=== PATIENT | female | born 1990 | race Hispanic/Latino ===

== ENCOUNTER 2016-07-22 12:42 | Outpatient (CLI) | payer OTHER ==
[~2016-07-22] VITALS: Ht 157.5 cm; Wt 66.2 kg
[2016-07-22 12:08] VITALS: BP 101/59
[~2016-07-22 12:42] MED LIST: ACYC200C PO; CLIN150C17 PO; FERR325C PO; IBUP-1773 PO; NITR-65 PO; PREN1TAB19 PO
[2016-07-22 13:04] VITALS: BP 108/64
[2016-07-22] MEDS ORDERED: FLU TRIvalent (5 YOA+) 2016-17 (AFLURIA) 0.5 ML IM ONE (14:15)
[2016-07-22] MEDS ORDERED: FERR325T5 PO (14:34)
[2016-07-22] MEDS ORDERED: PREN1TAB86 PO (14:34)
[2016-07-22 14:45] VITALS: BP 108/64
--- NOTE | 2016-07-22 15:12 | Diagnostic Imaging Report ---
INDICATION: well-being. TECHNIQUE: The biophysical profile was performed in the routine fashion. COMPARISON: There is no prior study for comparison. FINDINGS: The fetus scored 2 out of 2 in movement, posture and tone, and amniotic fluid index. The amniotic fluid index was 9.6 cm. The fetus is in cephalic presentation. The heart rate is 159 BPM. The fetus scored 0 out of 2 for breathing. IMPRESSION: The biophysical profile score is 6 out of 8 points. The fetus scored 0 out of 2 points for breathing. The amniotic fluid index is normal. Dictated by: Dictated on workstation # [id number]
--- NOTE | 2016-07-23 08:37 | Physician Query-Final Dx ---
BAM GUZMAN 07/23/16 0837: Clinic Account Progress/Dx Physician Query: Please give diagnosis Date of Service Jul 22, 2016 at 12:42 ANDREIA HERNÁNDEZ DO 07/24/16 0836: Clinic Account Progress/Dx DIAGNOSIS: Diagnosis 34 week IUP Decreased movement BAM GUZMAN Jul 23, 2016 08:37 ANDREIA HERNÁNDEZ DO Jul 24, 2016 08:36
== END 2016-07-22 14:45 | disposition home or self-care (01) ==
LOC: LDRP 12:42 → WSo 12:42
PROVIDERS: ATTEND Obstetrics & Gynecology
DX: O36.8130 Decreased fetal movements, third trimester, not applicable or unspecified (principal); Z3A.34 34 weeks gestation of pregnancy
CPT/HCPCS: 76819; 99214

== ENCOUNTER 2016-09-03 08:19 | Inpatient (IN) | payer OTHER ==
[2016-09-03] VITALS (19 sets, daily range): BP systolic 105–130; BP diastolic 55–78
[~2016-09-03] VITALS: Ht 160 cm; Wt 68.5 kg
[~2016-09-03 08:19] MED LIST changes: +FERR325T5 PO; +PREN1TAB86 PO
[2016-09-03] MEDS ORDERED: ACETAMINOPHEN 500 MG TAB (TYLENOL) PO ONE (09:15)
[2016-09-03] MEDS ORDERED: ACETAMINOPHEN 500 MG TAB (TYLENOL) ONE ×2 (09:16→17:07)
[2016-09-03 09:34] LABS: MEAN PLATELET VOLUME 9.9 FL (7.4-10.4); RED BLOOD COUNT 3.7 10^6/uL (4.35-5.85); RED CELL DISTRIBUTION WIDTH 15.7 % (10.0-14.5); WHITE BLOOD COUNT 7.9 10^3/uL (4.3-11.0)
[2016-09-03] MEDS ORDERED: D5 LR IV SOLUTION 1,000 ML IV ONE (10:05)
[2016-09-03] MEDS ORDERED: D5 LR IV SOLUTION 1,000 ML IV SCH ×2 (10:15→13:31)
--- NOTE | 2016-09-03 10:34 | Diagnostic Imaging Report ---
EXAMINATION: OB ultrasound. INDICATION: Decreased movement. FINDINGS: The heart rate is 174 BPM. The placenta is anterior. No placenta previa. The presentation is cephalic. The total amniotic fluid index is 17 cm. The biophysical profile criteria were met with an total score of 8 out of 8 points. IMPRESSION: The total biophysical profile score was 8 out of 8 points. Dictated by: Dictated on workstation # [id number]
[2016-09-03] MEDS ORDERED: MISOPROSTOL 100 MCG (CYTOTEC) TAB PO ONE (12:15)
[2016-09-03] MEDS ORDERED: TERBUTALINE INJ 1 MG/ML (BRETHINE) AMP SC PRN (13:45)
[2016-09-03] MEDS ORDERED: CATHETER FLUSH 10 ML SYR IV SCH ×2 (14:00→22:00)
[2016-09-03] MEDS ORDERED: MISOPROSTOL 100 MCG (CYTOTEC) TAB PO SCH (16:15)
[2016-09-03] MEDS ORDERED: SUFENTA 0.6MCG/ML BUPIVA 0.125 0 ML ONE (17:07)
[2016-09-03] MEDS ORDERED: LACTATED RINGERS 1,000 ML IV ONE (17:07)
[2016-09-03] MEDS ORDERED: OXYTOCIN/NORMAL SALINE 500 ML IV ONE (17:48)
[2016-09-03] MEDS: OXYTOCIN/NORMAL SALINE 500 ML IV SCH ×2 (17:50→18:24)
[2016-09-03] MEDS ORDERED: DIBUCAINE (NUPERCAINAL) 1% OINT 30 GM TOP PRN (18:00)
[2016-09-03] MEDS ORDERED: APAP 300 MG/CODEINE 30 MG (TYLENOL #3) TAB PO PRN (18:00)
[2016-09-03] MEDS ORDERED: MEASLES,MUMPS,RUBELLA 1 EA INJ SQ ONE (18:00)
[2016-09-03] MEDS ORDERED: BENZOCAINE/MENTHOL (DERMOPLAST) 56 ML CAN TP PRN (18:00)
[2016-09-03] MEDS ORDERED: WITCH HAZEL(TUCKS) 40 EA JAR TOP PRN (18:00)
[2016-09-03] MEDS ORDERED: guaiFENesin/DM (ROBITUSSIN DM) 10 ML UDC PO PRN (18:00)
[2016-09-03] MEDS ORDERED: TETANUS,DIPTH,PERTUSS P/F (BOOSTRIX) 0.5 ML VIAL IM ONE (18:00)
--- NOTE | 2016-09-03 18:07 | History & Physical-OB ---
OB - Chief Complaint & HPI Date Date of Admission: Date of Admission: Sep 03, 2016 at 12:15 Chief Complaint/History OB-Reason for Admission/Chief: Obstetrical Complication (Maternal temp, tachycardia, heart rate decelerations) Hx : 3 Hx Para: 2 Expected Date of Delivery: Sep 16, 2016 Gestational Age in Weeks: 38 Admission Nurse Assessment Rev: Yes History of Labs O pos Antibody neg RI RPR NR HBsAg NR HIV NR GC neg GBS neg Allergies and Home Medications Allergies Coded Allergies: No Known Drug Allergies (Verified , 09/19/08) Home Medications Ferrous Sulfate 325 Mg Tablet.dr 325 MG PO BID (Reported) Vit W-Ca,Fe,FA(<1 mg) 1 Each Tablet 1 EACH PO DAILY (Reported) OB - History Hx of Present Care: Yes Ultrasounds: Normal mid trimester US Obstetrical Complications: None Medical Complications: None Obstetrical History Hx Termination: No Hx Multiple Gestation: No Hx Stillbirth: No Hx Complication: No Hx Induced Hypertens: Yes Hx Maternal Gestational Diabet: No Delivery History Hx Dystocia: No Hx Large For Gestational Age I: No Hx Small for Gestational Age I: No Hx Section: No Hx Vaginal Delivery Post C-Sec: No Hx Blood Disorders: No Adverse Rxn to Tranfusion: No Patient Past Medical History n/a Social History/Family History Recent Infectious Disease Expo: No Alcohol Use: Denies Use Recreational Drug Use: No Immunizations Hepatitis A: No Hepatitis B: No Tetanus Booster (TDap): More than 5yrs OB - Admission Exam Physical Exam Vitals: Vital Signs 09/03/16 16:00 Temp 100.1 Pulse 95 Resp 20 B/P 105/55 O2 Delivery Non Rebreather O2 Flow Rate 10.00 HEENT: NCAT Heart: Rhythm Normal Lungs: Clear, Wheezes (expiratory wheezes) Abdomen: Gravid Extremities: Normal Reflexes: Normal Cervical Dilatation: 4cm Effacement: 50% Station: -2 Membranes: Intact Heart Rate: 130's Accelerations: Accelerations Present Decelerations: No Decelerations Short Term Variability: Present Wire Hanger Variability: Average (6-25) Contractions on Admission: 6-10 Minutes Apart Intensity: Mild Labs Laboratory Tests Test 09/03/16 09:20 Range/Units Hematocrit 28 L 35-52 % Hemoglobin 9.3 L 11.5-16.0 G/DL Mean Corpuscular Hemoglobin 25 25-34 PG Mean Corpuscular Hemoglobin Concent 33 32-36 G/DL Mean Corpuscular Volume 76 L 80-99 FL Mean Platelet Volume 9.9 7.4-10.4 FL Platelet Count 267 130-400 10^3/uL Red Blood Count 3.70 L 4.35-5.85 10^6/uL Red Cell Distribution Width 15.7 H 10.0-14.5 % White Blood Count 7.9 4.3-11.0 10^3/uL OB - Assessment/Plan/Diagnosis Assessment Assessment: other (Maternal temp, tachycardia, heart rate decelerations) Plan Plan: Other (Augmentation of labor) Induction Method: per Misoprostol Protocol Discharge Diagnosis Diagnosis: 26 yo @ 38.1 Maternal temp-likely URI viral vs. bacterial heart rate deceleration tachycardia GBS neg ANDREIA HERNÁNDEZ DO Sep 03, 2016 18:07
--- NOTE | 2016-09-03 18:11 | OB Labor & Delivery Record ---
L&D History Date of Service Date of Service: Sep 03, 2016 History Expected Date of Delivery: Sep 16, 2016 Gestational Age in Weeks: 38 Hx : 3 Hx Para: 2 Complications Events: Routine care Operative Indications (Cesarea: N/A-Vaginal Delivery Other Complications Maternal temp 101 F, persistent area of tachycardia L&D Stage1 Stage One Onset of Labor - Date: Sep 03, 2016 Monitors and Tracing Monitor Mode: Doppler Heart Rate: 155 Monitor Accelerations: Uniform Monitor Decelerations: Variable Station: -2 Nursing Home Variability: Average (6-10) Short Term Variability: Present Presentation: Vertex Vital Signs VS - Last 72 Hours, by Label 09/03/16 09/03/16 09/03/16 09/03/16 08:35 08:35 09:07 09:07 Temp 99.5 100.1 Pulse 121 121 121 121 Resp 20 20 20 20 B/P 119/69 119/69 115/66 115/66 O2 Delivery Room Air Room Air 09/03/16 09/03/16 09/03/16 09/03/16 10:00 10:00 11:30 13:05 Temp 100.4 100.4 98.6 99.0 Pulse 106 Resp 20 B/P 110/67 O2 Delivery Room Air 09/03/16 09/03/16 09/03/16 09/03/16 13:17 13:22 14:00 15:00 Temp 98.2 99.6 Pulse 105 Resp 20 B/P 114/66 O2 Delivery Non Rebreather Non Rebreather Non Rebreather O2 Flow Rate 10.00 10.00 10.00 09/03/16 16:00 Temp 100.1 Pulse 95 Resp 20 B/P 105/55 O2 Delivery Non Rebreather O2 Flow Rate 10.00 Rupture of Membranes Spontaneous Ruture of Membrane: No Amniotic Membrane Rupture Time: 17:00 Amniotic Membrane Fluid Desc.: Clear Vaginal Bleeding Description: Normal Show Progress/Notes Patient was given cytotec 100 mcg x 1 dose this am approx 0900, she progressed to 7cm with no analgesia and AROM'ed at 1700. Rapid progression to complete and +2 within 30 min of AROM L&D Stage2 Monitors and Tracing Monitor Mode: External Heart Rate: 155 Monitor Accelerations: None Monitor Decelerations: Variable Nursing Home Variability: Average (6-10) Short Term Variability: Present Position: Right Occiput Anterior Presentation: Vertex Cord Descript/Complications Cord Vessel Description: 3 Vessels Delivery Type Delivery Method: Spontaneous Vaginal Anterior Shoulder: Right Episiotomy/Perineal Laceration Laceraction(s)/Extensions: No Condition of Delivery 1 minute Comment: 9 5 minute Comment: 9 Notes Live male weight 6lbs 15 oz Condition of Infant Condition of Infant: Living Exam: No Observed Abnormalities Resuscitation Resuscitation: N/A - Spontaneous Resp L&D Stage3 Pictocin Pitocin Administration Comment: 30 mu wide open at delivery of placenta Placenta Delivery Placenta Delivery: Spontaneous Delivery Summary Summary blood loss >1000ml: No Vaginal blood loss >500ml: No 350 mL Attending at delivery: Andreia Hernández DO Condition of Delivery Examined: Cervix Examined, Uterus Explored Post Hemorrhage: No Condition of Mother stable Condition of (s) stable ANDREIA HERNÁNDEZ DO Sep 03, 2016 18:10
[2016-09-03] MEDS: IBUPROFEN 600 MG (MOTRIN) TAB PO SCH (19:39)
[2016-09-03] MEDS: AZITHROMYCIN 250 MG TAB (ZITHROMAX) PO SCH (19:39)
[2016-09-03] MEDS ORDERED: FLU TRIvalent (5 YOA+) 2016-17 (AFLURIA) 0.5 ML IM ONE (19:45)
[2016-09-03] MEDS: DOCUSATE SODIUM 100 MG (COLACE) CAP PO SCH (22:16)
[2016-09-03] MEDS: BENZONATATE 100 MG (TESSALON) CAPSULE PO SCH (22:16)
[2016-09-04 01:25] VITALS: BP 112/61
[2016-09-04] MEDS: IBUPROFEN 600 MG (MOTRIN) TAB PO SCH ×4 (01:26→18:31)
[2016-09-04 04:45] VITALS: BP 91/51
[2016-09-04 06:17] LABS: BASOPHILS % (AUTO) 0 % (0-10); EOSINOPHILS # (AUTO) 0.1 10^3/uL (0.0-0.3); EOSINOPHILS % (AUTO) 1 % (0-10); LYMPHOCYTES # (AUTO) 1.1 X 10^3 (1.0-4.0); LYMPHOCYTES % (AUTO) 12 % (12-44); MEAN CORPUSCULAR HEMOGLOBIN 25 PG (25-34); MEAN CORPUSCULAR HGB CONC 33 G/DL (32-36); MEAN CORPUSCULAR VOLUME 76 FL (80-99); MONOCYTES # (AUTO) 0.7 X 10^3 (0.0-1.0); MONOCYTES % (AUTO) 8 % (0-12); NEUTROPHILS # (AUTO) 7.7 X 10^3 (1.8-7.8); NEUTROPHILS % (AUTO) 80 % (42-75); PLATELET COUNT 264 10^3/uL (130-400); RED BLOOD COUNT 3.82 10^6/uL (4.35-5.85); RED CELL DISTRIBUTION WIDTH 15.9 % (10.0-14.5); WHITE BLOOD COUNT 9.6 10^3/uL (4.3-11.0)
--- NOTE | 2016-09-04 07:27 | Progress Note-Standard ---
Standard Progress Note Progress Notes/Assess & Plan Progress/Assessment & Plan Patient doing well PPD 1 NVD. Reports no concerns this morning. Cough is better, no fever/ chills overnight. Lochia light. Vital Sign - Last 24 Hours 09/03/16 09/03/16 09/03/16 09/03/16 08:35 08:35 09:07 09:07 Temp 99.5 100.1 Pulse 121 121 121 121 Resp 20 20 20 20 B/P 119/69 119/69 115/66 115/66 O2 Delivery Room Air Room Air 09/03/16 09/03/16 09/03/16 09/03/16 10:00 10:00 11:30 13:05 Temp 100.4 100.4 98.6 99.0 Pulse 106 Resp 20 B/P 110/67 O2 Delivery Room Air 09/03/16 09/03/16 09/03/16 09/03/16 13:17 13:22 14:00 15:00 Temp 98.2 99.6 Pulse 105 Resp 20 B/P 114/66 O2 Delivery Non Rebreather Non Rebreather Non Rebreather O2 Flow Rate 10.00 10.00 10.00 09/03/16 09/03/16 09/03/16 09/03/16 16:00 17:00 17:03 18:00 Temp 100.1 101.2 101.5 Pulse 95 113 107 Resp 20 20 20 B/P 105/55 130/78 123/61 O2 Delivery Non Rebreather Non Rebreather Room Air O2 Flow Rate 10.00 10.00 09/03/16 09/03/16 09/03/16 09/03/16 18:15 18:30 18:45 19:00 Pulse 103 92 92 80 Resp 20 20 20 20 B/P 123/61 120/61 111/60 111/63 O2 Delivery Room Air Room Air Room Air Room Air 09/03/16 09/03/16 09/03/16 09/03/16 19:15 19:30 19:45 20:00 Temp 99.5 Pulse 88 92 105 107 Resp 20 20 20 20 B/P 122/65 111/59 110/63 111/63 O2 Delivery Room Air Room Air Room Air Room Air 2/15/17 2/15/17 2/15/17 2/15/17 20:15 20:30 21:00 21:15 Temp 99.8 Pulse 104 108 109 116 Resp 20 20 20 20 B/P 116/64 109/62 115/68 106/60 O2 Delivery Room Air Room Air Room Air Room Air 09/04/16 09/04/16 01:25 04:45 Temp 98.2 98.1 Pulse 76 91 Resp 18 18 B/P 112/61 91/51 Pulse Ox 99 97 O2 Delivery Room Air Room Air Laboratory Tests Test 09/03/16 09:20 09/04/16 06:03 Range/Units Hematocrit 28 L 29 L 35-52 % Hemoglobin 9.3 L 9.6 L 11.5-16.0 G/DL Mean Corpuscular Hemoglobin 25 25 25-34 PG Mean Corpuscular Hemoglobin Concent 33 33 32-36 G/DL Mean Corpuscular Volume 76 L 76 L 80-99 FL Mean Platelet Volume 9.9 10.0 7.4-10.4 FL Platelet Count 267 264 130-400 10^3/uL Red Blood Count 3.70 L 3.82 L 4.35-5.85 10^6/uL Red Cell Distribution Width 15.7 H 15.9 H 10.0-14.5 % White Blood Count 7.9 9.6 4.3-11.0 10^3/uL Basophils # (Auto) 0.0 0.0-0.1 10^3/uL Basophils (%) (Auto) 0 0-10 % Eosinophils # (Auto) 0.1 0.0-0.3 10^3/uL Eosinophils (%) (Auto) 1 0-10 % Lymphocytes # (Auto) 1.1 1.0-4.0 X 10^3 Lymphocytes (%) (Auto) 12 12-44 % Monocytes # (Auto) 0.7 0.0-1.0 X 10^3 Monocytes (%) (Auto) 8 0-12 % Neutrophils # (Auto) 7.7 1.8-7.8 X 10^3 Neutrophils (%) (Auto) 80 H 42-75 % Uterine fundus firm and below umbilicus Diagnosis: PPD1 NVD URI- improved this am P: Continue current plan of care, patient on azithro and cough suppressant. Encourage ambulation, Anticipate dc home tomorrow. ANDREIA HERNÁNDEZ DO Sep 04, 2016 7:27 am
[2016-09-04 08:00] VITALS: BP 93/53
[2016-09-04] MEDS: FERROUS SULF 325 MG (IRON) TAB PO SCH (10:52)
[2016-09-04] MEDS: DOCUSATE SODIUM 100 MG (COLACE) CAP PO SCH ×2 (10:52→21:26)
[2016-09-04] MEDS: PRENATAL VITAMIN 1 EA TAB PO SCH (10:52)
[2016-09-04 12:20] VITALS: BP 91/59
[2016-09-04] MEDS: AZITHROMYCIN 250 MG TAB (ZITHROMAX) PO SCH (12:35)
[2016-09-04 16:00] VITALS: BP 100/67
[2016-09-04 19:45] VITALS: BP 104/62
[2016-09-04] MEDS: BENZONATATE 100 MG (TESSALON) CAPSULE PO SCH (21:26)
[2016-09-05] MEDS: IBUPROFEN 600 MG (MOTRIN) TAB PO SCH ×2 (00:18→05:58)
[2016-09-05 02:17] VITALS: BP 106/63
--- NOTE | 2016-09-05 07:39 | Progress Note-Standard ---
Standard Progress Note Progress Notes/Assess & Plan Progress/Assessment & Plan Patient doing well PPD 2 NVD. Reports no concerns this morning. Cough is better, no fever/ chills overnight. Lochia light. Vital Sign - Last 24 Hours 09/04/16 09/04/16 09/04/16 09/04/16 08:00 12:20 16:00 19:45 Temp 97.8 97.6 97.5 98.1 Pulse 77 99 78 95 Resp 16 18 20 18 B/P 93/53 91/59 100/67 104/62 Pulse Ox 98 96 95 97 O2 Delivery Room Air Room Air Room Air Room Air 09/05/16 02:17 Temp 98.1 Pulse 77 Resp 18 B/P 106/63 Pulse Ox 98 O2 Delivery Room Air Uterine fundus firm and below umbilicus Diagnosis: PPD2 NVD P: Continue current plan of care, patient on azithro and cough suppressant. Encourage ambulation, Anticipate dc home today. ANDREIA HERNÁNDEZ DO Sep 05, 2016 7:39 am
[2016-09-05] MEDS ORDERED: ACET1TAB43 PO (07:41)
[2016-09-05] MEDS ORDERED: GUAI5SYR PO (07:41)
[2016-09-05] MEDS ORDERED: IBUP-1773 PO (07:41)
[2016-09-05] MEDS ORDERED: DOCU100C37 PO (07:41)
[2016-09-05] MEDS ORDERED: AZIT250T5 PO (07:41)
--- NOTE | 2016-09-05 07:41 | Discharge Inst-Women's Service ---
Discharge Inst-Women's Serv Depart Medication/Instructions New, Converted or Re-Newed RX: RX on Chart Consults/Follow Up Additional Follow Up: Yes Orders/Referrals Dr. Hernández in 6 weeks Activity Activity: Activity as Tolerated Driving Instructions: No Driving for 1 Week NO SMOKING: NO SMOKING Nothing Inside Vagina: No Douching, No [place], No Tampons Diet Discharge Diet: No Restrictions Symptoms to Report to : Bleeding Excessive, Pain Increased, Fever Over 101 Degrees F, Vaginal Bleeding Increase, Questions/Concerns For Any Problems or Questions: Contact Your Physician Skin/Wound Care Bathing Instructions: Shower (x 2 weeks) ANDREIA HERNÁNDEZ DO Sep 05, 2016 7:41 am
[2016-09-05] MEDS: DOCUSATE SODIUM 100 MG (COLACE) CAP PO SCH (09:38)
[2016-09-05] MEDS: PRENATAL VITAMIN 1 EA TAB PO SCH (09:38)
[2016-09-05] MEDS: AZITHROMYCIN 250 MG TAB (ZITHROMAX) PO SCH (09:38)
[2016-09-05] MEDS: BENZONATATE 100 MG (TESSALON) CAPSULE PO SCH (09:38)
[2016-09-05] MEDS: FERROUS SULF 325 MG (IRON) TAB PO SCH (09:38)
[2016-09-05 09:45] VITALS: BP 104/70
== END 2016-09-05 13:50 | disposition home or self-care (01) | DRG 775 ==
LOC: LDRP 08:19 → WSo 08:19 → LDRP 12:15
PROVIDERS: ADMIT Obstetrics & Gynecology; ATTEND Obstetrics & Gynecology
PROC: 10E0XZZ Delivery of Products of Conception, External Approach (ICD-10-PCS; principal; 2016-09-03)
PROC: 3E0DXGC Introduction of Other Therapeutic Substance into Mouth and Pharynx, External Approach (ICD-10-PCS; 2016-09-03)
DX: O99.52 Diseases of the respiratory system complicating childbirth (principal); J06.9 Acute upper respiratory infection, unspecified; O76 Abnormality in fetal heart rate and rhythm complicating labor and delivery; Z37.0 Single live birth; Z3A.38 38 weeks gestation of pregnancy
CPT/HCPCS: 36415; 76819; 85025; 85027; 86850; 86900; 86901; 87804; 88307; 99212

== ENCOUNTER 2018-04-11 13:16 | Observation (INO) | payer SELFPAY ==
[~2018-04-11] VITALS: Ht 152.4 cm; Wt 77.1 kg
[~2018-04-11 13:16] MED LIST changes: +ACET1TAB43 PO; +AZIT250T12 PO; +DOCU100C37 PO; +GUAI5SYR PO
--- NOTE | 2018-04-11 13:35 | ED Chest Pain ---
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 The patient notes that when she coughs she also has left groin pain. She's had no associated headache, stiff neck, or photophobia. She denies nausea vomiting or diarrhea. She denies dysuria. She denies a productive cough. Allergies and Home Medications Allergies Coded Allergies: No Known Drug Allergies (Verified , 09/19/08) Home Medications No Active Prescriptions or Reported Meds Patient Home Medication List Home Medication List Reviewed: Yes Review of Systems Review of Systems Constitutional: malaise EENTM: No Blurred Vision Respiratory: See HPI, Cough Cardiovascular: See HPI, Chest Pain Gastrointestinal: Denies Abdominal Pain, Denies Diarrhea, Denies Vomiting Genitourinary: No Symptoms Reported Musculoskeletal: back pain Skin: No change in color Psychiatric/Neurological: No Symptoms Reported Endocrine: No Symptoms Reported Hematologic/Lymphatic: No Symptoms Reported Past Wrpdkgo-[id number]-Iyldri Hx Past Med/Social Hx: Reviewed Nursing Past Med/Soc Hx Patient Social History Recent Foreign Travel: No Contact w/Someone Who Travel: No Recent Hopitalizations: No Immunizations Up To Date Tetanus Booster (TDap): More than 5yrs PED Vaccines UTD: Yes Seasonal Allergies Seasonal Allergies: No Past Medical History Surgeries: No Respiratory: No Cardiac: No Neurological: No Reproductive Disorders: No Female Reproductive Disorders: Denies Genitourinary: No UTI-Chronic Gastrointestinal: Yes (Gastritis ) Musculoskeletal: No Endocrine: No HEENT: No Cancer: No Psychosocial: No Integumentary: No Blood Disorders: No Adverse Reaction/Blood Tranf: No Family Medical History Cardiovascular disease 19 MOTHER Diabetes mellitus 19 FATHER FH: cancer (GRANDFATHER) FH: hyperlipidemia (MOTHER) Hypertension 19 FATHER Thyroid disease 19 MOTHER No Family History of: AIDS Abdominal aortic aneurysm [place] disease Alcoholism Alzheimer's disease Aphasia Arthritis Asthma Cancer of mouth Cataracts Colon cancer Completed stroke Congenital disease Congenital heart disease Coronary thrombosis Cystic fibrosis Deafness or hearing loss Dementia Drug abuse Dysphasia Fibrocystic disease of breast Gastroenteritis Glaucoma Headache disorder Hypercholesterolemia Infertility Kidney disease Myocardial infarction Neoplasm Not obtainable due to adoption Osteoporosis Parkinson's disease Prostate cancer Psychosocial problem Respiratory disorder Seizure disorder Severe allergy Tuberculosis Visual disorder No Pertinent Family Hx Physical Exam Vital Signs Vital Signs - First Documented 04/11/18 04/11/18 13:22 13:50 Temp 98.7 Pulse 132 Resp 18 B/P (MAP) 119/78 (92) Pulse Ox 95 O2 Delivery Room Air O2 Flow Rate 2.00 Capillary Refill : Height, Weight, BMI Height: 5'3.00" Weight: 151lbs. 0.0oz. [id number]; 26.8 BMI Method:Stated General Appearance: WD/WN, Mild Distress HEENT: Normal ENT Inspection Neck: Normal Inspection Respiratory: Decreased Breath Sounds Cardiovascular: Regular Rate, Rhythm, Tachycardia Gastrointestinal: Normal Bowel Sounds Extremity: Normal Inspection, Normal Range of Motion Neurologic/Psychiatric: Oriented x3, No Motor/Sensory Deficits, Normal Mood/ Affect Skin: Normal Color, Warm/Dry Focused Exam Lactate Level 04/11/18 13:20: Lactic Acid Level 1.01 Lactic Acid Level Laboratory Tests Test 04/11/18 13:20 Lactic Acid Level 1.01 MMOL/L (0.50-2.00) Progress/Results/Core Measures Results/Orders Lab Results Laboratory Tests Test 04/11/18 13:20 04/11/18 14:14 04/11/18 14:26 Range/Units White Blood Count 13.8 H 4.3-11.0 10^3/uL Red Blood Count 5.03 4.35-5.85 10^6/uL Hemoglobin 13.0 11.5-16.0 G/DL Hematocrit 39 35-52 % Mean Corpuscular Volume 78 L 80-99 FL Mean Corpuscular Hemoglobin 26 25-34 PG Mean Corpuscular Hemoglobin Concent 33 32-36 G/DL Red Cell Distribution Width 15.8 H 10.0-14.5 % Platelet Count 353 130-400 10^3/uL Mean Platelet Volume 9.9 7.4-10.4 FL Neutrophils (%) (Auto) 75 42-75 % Lymphocytes (%) (Auto) 12 12-44 % Monocytes (%) (Auto) 6 0-12 % Eosinophils (%) (Auto) 7 0-10 % Basophils (%) (Auto) 0 0-10 % Neutrophils # (Auto) 10.3 H 1.8-7.8 X 10^3 Lymphocytes # (Auto) 1.7 1.0-4.0 X 10^3 Monocytes # (Auto) 0.9 0.0-1.0 X 10^3 Eosinophils # (Auto) 0.9 H 0.0-0.3 10^3/uL Basophils # (Auto) 0.1 0.0-0.1 10^3/uL D-Dimer 0.80 H 0.00-0.49 UG/ML Lactic Acid Level 1.01 0.50-2.00 MMOL/L Troponin I < 0.30 <0.30 NG/ML Urine Color YELLOW Urine Clarity CLEAR Urine pH 5 5-9 Urine Specific [place] 1.020 1.016-1.022 Urine Protein NEGATIVE NEGATIVE Urine Glucose (UA) NEGATIVE NEGATIVE Urine Ketones 1+ H NEGATIVE Urine Nitrite NEGATIVE NEGATIVE Urine Bilirubin NEGATIVE NEGATIVE Urine Urobilinogen NORMAL NORMAL MG/DL Urine Leukocyte Esterase 2+ H NEGATIVE Urine RBC (Auto) 2+ H NEGATIVE Urine RBC NONE /HPF Urine WBC 2-5 /HPF Urine Squamous Epithelial Cells 0-2 /HPF Urine Crystals PRESENT H /LPF Urine Amorphous Sediment MOD ARABELLA URATES H /LPF Urine Bacteria MODERATE H /HPF Urine Casts NONE /LPF Urine Mucus LARGE H /LPF Urine Culture Indicated NO Blood Gas Puncture Site RT RAD Blood Gas Patient Temperature 100.6 Arterial Blood pH 7.40 7.37-7.43 Arterial Blood Partial Pressure CO2 35 35-45 MMHG Arterial Blood Partial Pressure O2 72 L 79-93 MMHG Arterial Blood HCO3 21 L 23-27 MMOL/L Arterial Blood Total CO2 21.7 21.0-31.0 MMOL/L Arterial Blood Oxygen Saturation 93 L 94-100 % Arterial Blood Base Excess -3.1 L -2.5-2.5 MMOL/L Ross Test YES-POS Blood Gas Ventilator Setting NO Blood Gas Inspired Oxygen ROOM AIR My Orders Orders - MARKIE HUNT MD Cbc With Automated Diff (04/11/18 13:28) Fibrin Degradation Products (04/11/18 13:28) Ua Culture If Indicated (04/11/18 13:28) Ekg Tracing (04/11/18 13:28) Troponin I (04/11/18 13:28) Blood Culture (04/11/18 13:35) Lactic Acid Analyzer (04/11/18 13:35) Albuterol/Ipra Inhalation Soln (Duoneb I (04/11/18 13:45) Svn Small Volume Nebulizer (04/11/18 13:35) Arterial Blood Gas (04/11/18 13:58) Ct Angio Chest W (04/11/18 15:15) Ns Iv 1000 Ml (Sodium Chloride 0.9%) (04/11/18 16:00) Ceftriaxone For Iv Use (Rocephin For I (04/11/18 16:15) Medications Given in ED Current Medications Medications Dose Ordered Sig/Johnny Route Start Time Stop Time Status Last Admin Dose Admin Albuterol/ Ipratropium 3 ml ONCE ONCE INH 04/11/18 13:45 04/11/18 13:46 DC 04/11/18 13:50 3 ML Iohexol 150 ml ONCE ONCE IV 04/11/18 15:30 04/11/18 15:35 DC 04/11/18 15:43 140 ML Sodium Chloride 250 ml ONCE ONCE IV 04/11/18 15:30 04/11/18 15:35 DC 04/11/18 15:43 80 ML Vital Signs/I&O 04/11/18 04/11/18 04/11/18 04/11/18 13:22 13:50 13:51 15:13 Temp 98.7 Pulse 132 123 Resp 18 18 B/P (MAP) 119/78 (92) 107/75 (86) Pulse Ox 95 93 98 O2 Delivery Room Air Nasal Cannula Nasal Cannula O2 Flow Rate 2.00 2.00 04/11/18 16:08 Pulse 118 Resp 18 B/P (MAP) 117/74 (88) Pulse Ox 100 O2 Delivery Nasal Cannula O2 Flow Rate 2.00 Progress Progress Note : Time: 16:21 Progress Note Patient had an elevated white count. Chest x-ray failed to demonstrate evidence of acute infiltrate. Patient's d-dimer was elevated. Blood cultures were obtained. Fortunately the patient's CTA fell demonstrate evidence of pulmonary embolus. Patient was given a liter of normal saline bolus. 2 g Rocephin IV were ordered I discussed findings with patient and family. We will initiate oral antibiotics. I will askl her to obtain a close follow-up with her caregiver of choice tomorrow. I invited her to return to the emergency department should any further problems or questions. Departure Impression Primary Impression: Acute URI Disposition: 01 HOME, SELF-CARE Condition: Improved Departure-Patient Inst. Decision time for Depature: 16:24 Referrals: [facility],LOCAL PHYSICIAN (PCP) Primary Care Physician Patient Instructions: Bacterial Upper Respiratory Infection, Adult (DC) Add. Discharge Instructions: Zithromax as prescribed. Close follow-up with [facility] tomorrow. Return if any problems. Scripts No Active Prescriptions or Reported Meds MARKIE HUNT MD Apr 11, 2018 13:35
[2018-04-11] MEDS ORDERED: RT-ALBUTEROL/IPRATROPIUM 3 ML (DUONEB) VIAL INH ONE (13:45)
[2018-04-11 14:13] LABS: BASOPHILS # (AUTO) 0.1 10^3/uL (0.0-0.1); BASOPHILS % (AUTO) 0 % (0-10); EOSINOPHILS # (AUTO) 0.9 10^3/uL (0.0-0.3); EOSINOPHILS % (AUTO) 7 % (0-10); HEMATOCRIT 39 % (35-52); LYMPHOCYTES # (AUTO) 1.7 X 10^3 (1.0-4.0); LYMPHOCYTES % (AUTO) 12 % (12-44); MEAN CORPUSCULAR HEMOGLOBIN 26 PG (25-34); MEAN CORPUSCULAR HGB CONC 33 G/DL (32-36); MEAN CORPUSCULAR VOLUME 78 FL (80-99); MEAN PLATELET VOLUME 9.9 FL (7.4-10.4); MONOCYTES # (AUTO) 0.9 X 10^3 (0.0-1.0); MONOCYTES % (AUTO) 6 % (0-12); NEUTROPHILS # (AUTO) 10.3 X 10^3 (1.8-7.8); NEUTROPHILS % (AUTO) 75 % (42-75); PLATELET COUNT 353 10^3/uL (130-400); RED BLOOD COUNT 5.03 10^6/uL (4.35-5.85); RED CELL DISTRIBUTION WIDTH 15.8 % (10.0-14.5); WHITE BLOOD COUNT 13.8 10^3/uL (4.3-11.0)
[2018-04-11 14:23] LABS: BILIRUBIN,URINE NEGATIVE (NEGATIVE); CLARITY,URINE CLEAR; COLOR,URINE YELLOW; GLUCOSE, URINE (UA) NEGATIVE (NEGATIVE); KETONES,URINE 1+ (NEGATIVE); LEUKOCYTE ESTERASE ,URINE 2+ (NEGATIVE); NITRITE,URINE NEGATIVE (NEGATIVE); PH,URINE 5 (5-9); PROTEIN,URINE NEGATIVE (NEGATIVE); UROBILINOGEN,URINE NORMAL (NORMAL)
[2018-04-11 14:26] LABS: AMORPHOUS SEDIMENT,UR MOD AMOR URATES /LPF; BACTERIA,URINE MODERATE /HPF; SQUAMOUS EPITHELIAL CELL,UR 0-2 /HPF
[2018-04-11 14:29] LABS: ABG BASE EXCESS -3.1 MMOL/L (-2.5-2.5); ABG OXYGEN SATURATION 93 % (94-100); ABG PCO2 35 MMHG (35-45); ABG PO2 72 MMHG (79-93); ABG TCO2 21.7 MMOL/L (21.0-31.0)
[2018-04-11 14:32] LABS: ALLENS TEST YES-POS; INSPIRED O2 ROOM AIR; PATIENT TEMP 100.6; VENTILATOR NO
--- NOTE | 2018-04-11 14:44 | Diagnostic Imaging Report ---
PATIENT HISTORY: Cough. TECHNIQUE: Two views of the chest. COMPARISON: 08/17/2013. FINDINGS: The lung volumes are normal. No focal consolidation is seen. No large pleural effusion or pneumothorax is seen. The cardiomediastinal silhouette is normal in size and contour. No acute osseous abnormality is seen. IMPRESSION: No acute pulmonary abnormality seen. Dictated by: Dictated on workstation # [id number]
[2018-04-11 15:13] VITALS: BP 107/75
--- OUTSIDE RECORDS SUMMARY | 2018-04-11 15:17 | XMS REPORT | Continuity of Care Document ---
Author Author [facility] Organization [facility] Address Unknown Phone Unavailable Allergies Active Description Code Type Severity Reaction Onset Reported/Identified Relationship to Patient Clinical Status Yes No Known Drug Allergies [id number] Drug Allergy Unknown N/A 09/19/2008 Medications There is no data. Problems Date Dx Coded Attending Type Code Diagnosis Diagnosed By 09/18/2013 SYD HORTON SKIN CARE SPECIALIST Ot 599.0 URIN TRACT INFECTION NOS 09/18/2013 SYD HORTON SKIN CARE SPECIALIST Ot 640.03 THREATEN ABORT-ANTEPART 09/18/2013 SYD HORTON SKIN CARE SPECIALIST Ot 646.63 INFECTION-ANTEPARTUM 09/18/2013 SYD HORTON SKIN CARE SPECIALIST Ot 789.05 ABDOMINAL PAIN, PERIUMBILIC 01/18/2014 JANETTE PEREZ MD Ot 644.03 THRT FRANCA LABOR-ANTEPART 04/20/2014 JANETTE PEREZ MD Ot 644.13 THREAT LABOR NEC-ANTEPAR 04/24/2014 JANETTE PEREZ MD Ot 644.13 THREAT LABOR NEC-ANTEPAR 04/28/2014 JANETTE PEREZ MD Ot 659.71 ABN DEL FET HT RT/RHYTHM,W OR W/O MENTIO 04/28/2014 JANETTE PEREZ MD Ot V27.0 DELIVER-SINGLE LIVEBORN 07/04/2014 JANETTE PEREZ MD Ot V28.81 07/04/2014 JANETTE PEREZ MD Ot V22.1 07/04/2014 JANETTE PEREZ MD Ot V28.81 07/17/2014 JANETTE PEREZ MD Ot V28.81 07/17/2014 JANETTE PEREZ MD Ot V22.1 11/21/2014 JANETTE PEREZ MD Ot V22.1 11/21/2014 JANETTE PEREZ MD Ot V22.1 12/21/2014 Ot 625.9 12/21/2014 Ot 285.9 12/21/2014 Ot 625.9 12/21/2014 Ot 780.4 12/21/2014 Ot 285.9 12/21/2014 Ot 625.9 12/21/2014 Ot 780.4 12/21/2014 JANETTE PEREZ MD Ot 704.00 12/21/2014 JANETTE PEREZ MD Ot 786.50 12/21/2014 JANETTE PEREZ MD Ot 789.09 12/21/2014 JANETTE PEREZ MD Ot 789.03 12/21/2014 JANETTE PEREZ MD Ot 789.04 12/21/2014 JANETTE PEREZ MD Ot 789.06 12/21/2014 JANETTE PEREZ MD Ot V28.81 12/21/2014 JANETTE PEREZ MD Ot V22.1 12/21/2014 Ot 625.9 03/05/2015 Ot 625.9 03/15/2015 Ot 625.9 11/26/2015 Ot 285.9 ANEMIA NOS 11/26/2015 Ot 625.9 FEM GENITAL SYMPTOMS NOS 11/26/2015 Ot 780.4 DIZZINESS AND GIDDINESS 11/26/2015 Ot 285.9 ANEMIA NOS 11/26/2015 Ot 625.9 FEM GENITAL SYMPTOMS NOS 11/26/2015 Ot 780.4 DIZZINESS AND GIDDINESS 11/26/2015 JANETTE PEREZ MD Ot 704.00 ALOPECIA NOS 11/26/2015 JANETTE PEREZ MD Ot 786.50 CHEST PAIN NOS 11/26/2015 JANETTE PEREZ MD Ot 789.09 ABDOMINAL PAIN, OTHER SPECIFIED SITE 11/26/2015 JANETTE PEREZ MD Ot 789.03 ABDOMINAL PAIN, RIGHT LOWER QUADRANT 11/26/2015 JANETTE PEREZ MD Ot 789.04 ABDOMINAL PAIN, LEFT LOWER QUADRANT 11/26/2015 JANETTE PEREZ MD Ot 789.06 ABDOMINAL PAIN, EPIGASTRIC 11/26/2015 JANETTE PEREZ MD Ot V28.81 ENCOUNTER FOR ANATOMIC SURVEY 11/26/2015 JANETTE PEREZ MD Ot V22.1 SUPERVIS OTH NORMAL PREG 11/26/2015 Ot 625.9 FEM GENITAL SYMPTOMS NOS 12/02/2015 JANETTE PEREZ MD Ot N93.9 ABNORMAL UTERINE AND VAGINAL BLEEDING, U 12/02/2015 JANETTE PEREZ MD Ot R10.2 PELVIC AND PERINEAL PAIN 03/16/2016 Ot 285.9 ANEMIA NOS 03/16/2016 Ot 625.9 FEM GENITAL SYMPTOMS NOS 03/16/2016 Ot 780.4 DIZZINESS AND GIDDINESS 03/16/2016 Ot 285.9 ANEMIA NOS 03/16/2016 Ot 625.9 FEM GENITAL SYMPTOMS NOS 03/16/2016 Ot 780.4 DIZZINESS AND GIDDINESS 03/16/2016 JANETTE PEREZ MD Ot 704.00 ALOPECIA NOS 03/16/2016 JANETTE PEREZ MD Ot 786.50 CHEST PAIN NOS 03/16/2016 JANETTE PEREZ MD Ot 789.09 ABDOMINAL PAIN, OTHER SPECIFIED SITE 03/16/2016 JANETTE PEREZ MD Ot 789.03 ABDOMINAL PAIN, RIGHT LOWER QUADRANT 03/16/2016 JANETTE PEREZ MD Ot 789.04 ABDOMINAL PAIN, LEFT LOWER QUADRANT 03/16/2016 JANETTE PEREZ MD Ot 789.06 ABDOMINAL PAIN, EPIGASTRIC 03/16/2016 JANETTE PEREZ MD Ot V28.81 ENCOUNTER FOR ANATOMIC SURVEY 03/16/2016 JANETTE PEREZ MD Ot V22.1 SUPERVIS OTH NORMAL PREG 03/16/2016 Ot 625.9 FEM GENITAL SYMPTOMS NOS 03/16/2016 JANETTE PEREZ MD Ot N93.9 ABNORMAL UTERINE AND VAGINAL BLEEDING, U 03/16/2016 JANETTE PEREZ MD Ot R10.2 PELVIC AND PERINEAL PAIN 03/16/2016 YANG OLIVEIRA Ot B02.9 ZOSTER WITHOUT COMPLICATIONS 03/16/2016 YANG OLIVEIRA Ot N76.0 ACUTE VAGINITIS 03/16/2016 YANG OLIVEIRA Ot N93.9 ABNORMAL UTERINE AND VAGINAL BLEEDING, U 03/16/2016 YANG OLIVEIRA Ot O20.0 THREATENED 03/16/2016 YANG OLIVEIRA Ot Z3A.13 13 WEEKS GESTATION OF 03/16/2016 Ot 285.9 ANEMIA NOS 03/16/2016 Ot 625.9 FEM GENITAL SYMPTOMS NOS 03/16/2016 Ot 780.4 DIZZINESS AND GIDDINESS 03/16/2016 Ot 285.9 ANEMIA NOS 03/16/2016 Ot 625.9 FEM GENITAL SYMPTOMS NOS 03/16/2016 Ot 780.4 DIZZINESS AND GIDDINESS 03/16/2016 JANETTE PEREZ MD Ot 704.00 ALOPECIA NOS 03/16/2016 JANETTE PEREZ MD Ot 786.50 CHEST PAIN NOS 03/16/2016 JANETTE PEREZ MD Ot 789.09 ABDOMINAL PAIN, OTHER SPECIFIED SITE 03/16/2016 JANETTE PEREZ MD Ot 789.03 ABDOMINAL PAIN, RIGHT LOWER QUADRANT 03/16/2016 JANETTE PEREZ MD Ot 789.04 ABDOMINAL PAIN, LEFT LOWER QUADRANT 03/16/2016 JANETTE PEREZ MD Ot 789.06 ABDOMINAL PAIN, EPIGASTRIC 03/16/2016 JANETTE PEREZ MD Ot V28.81 ENCOUNTER FOR ANATOMIC SURVEY 03/16/2016 JANETTE PEREZ MD Ot V22.1 SUPERVIS OTH NORMAL PREG 03/16/2016 Ot 625.9 FEM GENITAL SYMPTOMS NOS 03/16/2016 JANETTE PEREZ MD Ot N93.9 ABNORMAL UTERINE AND VAGINAL BLEEDING, U 03/16/2016 JANETTE PEREZ MD Ot R10.2 PELVIC AND PERINEAL PAIN 03/22/2016 YANG OLIVEIRA Ot B02.9 ZOSTER WITHOUT COMPLICATIONS 03/22/2016 YANG OLIVEIRA Ot N76.0 ACUTE VAGINITIS 03/22/2016 YANG OLIVEIRA Ot N93.9 ABNORMAL UTERINE AND VAGINAL BLEEDING, U 03/22/2016 YANG OLIVEIRA Ot O20.0 THREATENED 03/22/2016 YANG OLIVEIRA Ot Z3A.13 13 WEEKS GESTATION OF 06/30/2016 Ot 285.9 ANEMIA NOS 06/30/2016 Ot 625.9 FEM GENITAL SYMPTOMS NOS 06/30/2016 Ot 780.4 DIZZINESS AND GIDDINESS 06/30/2016 Ot 285.9 ANEMIA NOS 06/30/2016 Ot 625.9 FEM GENITAL SYMPTOMS NOS 06/30/2016 Ot 780.4 DIZZINESS AND GIDDINESS 06/30/2016 JANETTE PEREZ MD Ot 704.00 ALOPECIA NOS 06/30/2016 JANETTE PEREZ MD Ot 786.50 CHEST PAIN NOS 06/30/2016 JANETTE PEREZ MD Ot 789.09 ABDOMINAL PAIN, OTHER SPECIFIED SITE 06/30/2016 JANETTE PEREZ MD Ot 789.03 ABDOMINAL PAIN, RIGHT LOWER QUADRANT 06/30/2016 JANETTE PEREZ MD Ot 789.04 ABDOMINAL PAIN, LEFT LOWER QUADRANT 06/30/2016 JANETTE PEREZ MD Ot 789.06 ABDOMINAL PAIN, EPIGASTRIC 06/30/2016 JANETTE PEREZ MD Ot V28.81 ENCOUNTER FOR ANATOMIC SURVEY 06/30/2016 JANETTE PEREZ MD Ot V22.1 SUPERVIS OTH NORMAL PREG 06/30/2016 Ot 625.9 FEM GENITAL SYMPTOMS NOS 06/30/2016 JANETTE PEREZ MD Ot N93.9 ABNORMAL UTERINE AND VAGINAL BLEEDING, U 06/30/2016 JANETTE PEREZ MD Ot R10.2 PELVIC AND PERINEAL PAIN 06/30/2016 JANETTE PEREZ MD Ot N93.9 ABNORMAL UTERINE AND VAGINAL BLEEDING, U 06/30/2016 JANETTE PEREZ MD Ot R10.2 PELVIC AND PERINEAL PAIN 07/01/2016 YANG OLIVEIRA Ot B02.9 ZOSTER WITHOUT COMPLICATIONS 07/01/2016 MAUREEN BABCOCK YANG Nestor Ot N76.0 ACUTE VAGINITIS 07/01/2016 DEMI OLIVEIRAEN Nestor Ot N93.9 ABNORMAL UTERINE AND VAGINAL BLEEDING, U 07/01/2016 DEMI OLIVEIRAEN Nestor Ot O20.0 THREATENED 07/01/2016 YANG OLIVEIRA Ot Z3A.13 13 WEEKS GESTATION OF 07/18/2016 JANETTE PEREZ MD Ot N93.9 ABNORMAL UTERINE AND VAGINAL BLEEDING, U 07/18/2016 JANETTE PEREZ MD Ot R10.2 PELVIC AND PERINEAL PAIN 07/19/2016 JANETTE PEREZ MD Ot N93.9 ABNORMAL UTERINE AND VAGINAL BLEEDING, U 07/19/2016 JANETTE PEREZ MD Ot R10.2 PELVIC AND PERINEAL PAIN 07/22/2016 Ot 285.9 ANEMIA NOS 07/22/2016 Ot 625.9 FEM GENITAL SYMPTOMS NOS 07/22/2016 Ot 780.4 DIZZINESS AND GIDDINESS 07/22/2016 Ot 285.9 ANEMIA NOS 07/22/2016 Ot 625.9 FEM GENITAL SYMPTOMS NOS 07/22/2016 Ot 780.4 DIZZINESS AND GIDDINESS 07/22/2016 JANETTE PEREZ MD Ot 704.00 ALOPECIA NOS 07/22/2016 JANETTE PEREZ MD Ot 786.50 CHEST PAIN NOS 07/22/2016 JANETTE PEREZ MD Ot 789.09 ABDOMINAL PAIN, OTHER SPECIFIED SITE 07/22/2016 JANETTE PEREZ MD Ot 789.03 ABDOMINAL PAIN, RIGHT LOWER QUADRANT 07/22/2016 JANETTE PEREZ MD Ot 789.04 ABDOMINAL PAIN, LEFT LOWER QUADRANT 07/22/2016 JANETTE PEREZ MD Ot 789.06 ABDOMINAL PAIN, EPIGASTRIC 07/22/2016 JANETTE PEREZ MD Ot V28.81 ENCOUNTER FOR ANATOMIC SURVEY 07/22/2016 JANETTE PEREZ MD Ot V22.1 SUPERVIS OTH NORMAL PREG 07/22/2016 Ot 625.9 FEM GENITAL SYMPTOMS NOS 07/22/2016 CHRIS MARI, JANETTE Johnson Ot N93.9 ABNORMAL UTERINE AND VAGINAL BLEEDING, U 07/22/2016 JANETTE PEREZ MD Ot R10.2 PELVIC AND PERINEAL PAIN 07/22/2016 FENECH DO, ANDREIA S Ot O36.8130 DECREASED MOVEMENTS, THIRD TRIMEST 07/22/2016 FENECH DO, ANDREIA S Ot Z3A.34 34 WEEKS GESTATION OF 07/25/2016 FENECH DO, ANDREIA S Ot O36.8130 DECREASED MOVEMENTS, THIRD TRIMEST 07/25/2016 FENECH DO, ANDREIA S Ot Z3A.34 34 WEEKS GESTATION OF 07/25/2016 FENECH DO, ANDREIA S Ot O36.8130 DECREASED MOVEMENTS, THIRD TRIMEST 07/25/2016 FENECH DO, ANDREIA S Ot Z3A.34 34 WEEKS GESTATION OF 09/03/2016 Ot 285.9 ANEMIA NOS 09/03/2016 Ot 625.9 FEM GENITAL SYMPTOMS NOS 09/03/2016 Ot 780.4 DIZZINESS AND GIDDINESS 09/03/2016 Ot 285.9 ANEMIA NOS 09/03/2016 Ot 625.9 FEM GENITAL SYMPTOMS NOS 09/03/2016 Ot 780.4 DIZZINESS AND GIDDINESS 09/03/2016 CHRIS MARI, JANETTE Johnson Ot 704.00 ALOPECIA NOS 09/03/2016 CHRIS MARI, JANETTE Johnson Ot 786.50 CHEST PAIN NOS 09/03/2016 CHRIS MARI, JANETTE Johnson Ot 789.09 ABDOMINAL PAIN, OTHER SPECIFIED SITE 09/03/2016 JANETTE PEREZ MD Ot 789.03 ABDOMINAL PAIN, RIGHT LOWER QUADRANT 09/03/2016 JANETTE PEREZ MD Ot 789.04 ABDOMINAL PAIN, LEFT LOWER QUADRANT 09/03/2016 JANETTE PEREZ MD Ot 789.06 ABDOMINAL PAIN, EPIGASTRIC 09/03/2016 JANETTE PEREZ MD Ot V28.81 ENCOUNTER FOR ANATOMIC SURVEY 09/03/2016 JANETTE PEREZ MD Ot V22.1 SUPERVIS OTH NORMAL PREG 09/03/2016 Ot 625.9 FEM GENITAL SYMPTOMS NOS 09/03/2016 JANETTE PEREZ MD Ot N93.9 ABNORMAL UTERINE AND VAGINAL BLEEDING, U 09/03/2016 JANETTE PEREZ MD Ot R10.2 PELVIC AND PERINEAL PAIN 09/03/2016 JANETTE PEREZ MD Ot N93.9 ABNORMAL UTERINE AND VAGINAL BLEEDING, U 09/03/2016 JANETTE PEREZ MD Ot R10.2 PELVIC AND PERINEAL PAIN 09/04/2016 JANETTE PEREZ MD Ot N93.9 ABNORMAL UTERINE AND VAGINAL BLEEDING, U 09/04/2016 JANETTE PEREZ MD Ot R10.2 PELVIC AND PERINEAL PAIN 09/04/2016 JANETTE PEREZ MD Ot N93.9 ABNORMAL UTERINE AND VAGINAL BLEEDING, U 09/04/2016 JANETTE PEREZ MD Ot R10.2 PELVIC AND PERINEAL PAIN 09/05/2016 ANDREIA HERNÁNDEZ DO Ot J06.9 ACUTE UPPER RESPIRATORY INFECTION, UNSPE 09/05/2016 ANDREIA HERNÁNDEZ DO S Ot O76 ABNLT IN HEART RATE AND RHYTHM COM 09/05/2016 ANDREAI HERNÁNDEZ DO Ot O99.52 DISEASES OF THE RESPIRATORY SYSTEM COMPL 09/05/2016 ANDREIA HERNÁNDEZ DO Ot Z37.0 SINGLE LIVE 09/05/2016 ANDREIA HERNÁNDEZ DO Ot Z3A.38 38 WEEKS GESTATION OF 04/11/2018 JANETTE PEREZ MD Ot 704.00 ALOPECIA NOS 04/11/2018 JANETTE PEREZ MD Ot 786.50 CHEST PAIN NOS 04/11/2018 JANETTE PEREZ MD Ot 789.09 ABDOMINAL PAIN, OTHER SPECIFIED SITE 04/11/2018 JANETTE PEREZ MD Ot 789.03 ABDOMINAL PAIN, RIGHT LOWER QUADRANT 04/11/2018 JANETTE PEREZ MD Ot 789.04 ABDOMINAL PAIN, LEFT LOWER QUADRANT 04/11/2018 JANETTE PEREZ MD Ot 789.06 ABDOMINAL PAIN, EPIGASTRIC 04/11/2018 JANETTE PEREZ MD Ot V28.81 ENCOUNTER FOR ANATOMIC SURVEY 04/11/2018 JANETTE PEREZ MD Ot V22.1 SUPERVIS OTH NORMAL PREG 04/11/2018 Ot 625.9 FEM GENITAL SYMPTOMS NOS 04/11/2018 JANETTE PEREZ MD Ot N93.9 ABNORMAL UTERINE AND VAGINAL BLEEDING, U 04/11/2018 JANETTE PEREZ MD Ot R10.2 PELVIC AND PERINEAL PAIN Procedures Code Description Performed By Performed On 73.6 EPISIOTOMY 04/27/2014 [id number] DELIVERY OF PRODUCTS OF CONCEPTION, EXTE 09/03/2016 [id number] INTRODUCE OTH THERAP SUBST IN MOUTH/PHAR 09/03/2016 Results Test Result Range Complete urinalysis with reflex to culture - 03/16/16 12:22 Urine color determination YELLOW NRG Urine clarity determination SLIGHTLY CLOUDY NRG Urine pH measurement by test strip 6 5-9 Specific gravity of urine by test strip 1.020 1.016- 1.022 Urine protein assay by test strip, semi-quantitative 1+ NEGATIVE Urine glucose detection by automated test strip NEGATIVE NEGATIVE Erythrocytes detection in urine sediment by light microscopy 2+ NEGATIVE Urine ketones detection by automated test strip 3+ NEGATIVE Urine nitrite detection by test strip NEGATIVE NEGATIVE Urine total bilirubin detection by test strip NEGATIVE NEGATIVE Urine urobilinogen measurement by automated test strip (mass/volume) NORMAL NORMAL Urine leukocyte esterase detection by dipstick 2+ NEGATIVE Automated urine sediment erythrocyte count by microscopy (number/high power field) [HPF] NRG Automated urine sediment leukocyte count by microscopy (number/high power field ) [HPF] NRG Bacteria detection in urine sediment by light microscopy NEGATIVE NRG Squamous epithelial cells detection in urine sediment by light microscopy >50 NRG Crystals detection in urine sediment by light microscopy NONE NRG Casts detection in urine sediment by light microscopy NONE NRG Mucus detection in urine sediment by light microscopy MODERATE NRG Complete urinalysis with reflex to culture NO NRG Complete blood count (CBC) with automated white blood cell (WBC) differential - 03/16/16 12:38 Blood leukocytes automated count (number/volume) 8.2 10*3/uL 4.3-11.0 Blood erythrocytes automated count (number/volume) 4.31 10*6/uL 4.35-5.85 Venous blood hemoglobin measurement (mass/volume) 11.8 g/dL 11.5-16.0 Blood hematocrit (volume fraction) 34 % 35-52 Automated erythrocyte mean corpuscular volume 79 [foz_us] 80-99 Automated erythrocyte mean corpuscular hemoglobin (mass per erythrocyte) 27 pg 25-34 Automated erythrocyte mean corpuscular hemoglobin concentration measurement ( mass/volume) 35 g/dL 32-36 Automated erythrocyte distribution width ratio 14.1 % 10.0-14.5 Automated blood platelet count (count/volume) 305 10*3/uL 130-400 Automated blood platelet mean volume measurement 9.3 [foz_us] 7.4-10.4 Automated blood neutrophils/100 leukocytes 66 % 42-75 Automated blood lymphocytes/100 leukocytes 25 % 12-44 Blood monocytes/100 leukocytes 6 % 0-12 Automated blood eosinophils/100 leukocytes 3 % 0-10 Automated blood basophils/100 leukocytes 1 % 0-10 Blood neutrophils automated count (number/volume) 5.4 10*3 1.8-7.8 Blood lymphocytes automated count (number/volume) 2.0 10*3 1.0-4.0 Blood monocytes automated count (number/volume) 0.5 10*3 0.0-1.0 Automated eosinophil count 0.3 10*3/uL 0.0-0.3 Automated blood basophil count (count/volume) 0.1 10*3/uL 0.0-0.1 Serum or plasma choriogonadotropin measurement (units/volume) - 03/16/16 12:38 Serum or plasma choriogonadotropin measurement (units/volume) 45380 m[iU]/mL <5 [id number] - 03/16/16 12:38 [id number] SPECIMEN AVAILABLE NRG Bacteria identification in genital specimen by aerobe culture - 03/16/16 14:16 QUANTITY OF GROWTH Isolated NRG Bacteria identification in genital specimen by aerobe culture [id number] NRG Microscopic examination by wet preparation - 03/16/16 14:16 WET PREP RESULTS NO CLUE CELLS OBSERVED NRG Neisseria gonorrhoeae DNA detection by probe and signal amplification method - 03/16/16 14:16 Gonorrhea amp DNA-urine Negative Negative Chlamydia trachomatis DNA detection by probe and signal amplification method - 03/16/16 14:16 Chlamydia trachomatis DNA detection by probe and target amplification method Negative Negative [id number] - 09/03/16 09:20 [id number] SPECIMEN AVAILABLE NRG Automated blood complete blood count (hemogram) panel - 09/03/16 09:20 Blood leukocytes automated count (number/volume) 7.9 10*3/uL 4.3-11.0 Blood erythrocytes automated count (number/volume) 3.70 10*6/uL 4.35-5.85 Venous blood hemoglobin measurement (mass/volume) 9.3 g/dL 11.5-16.0 Blood hematocrit (volume fraction) 28 % 35-52 Automated erythrocyte mean corpuscular volume 76 [foz_us] 80-99 Automated erythrocyte mean corpuscular hemoglobin (mass per erythrocyte) 25 pg 25-34 Automated erythrocyte mean corpuscular hemoglobin concentration measurement ( mass/volume) 33 g/dL 32-36 Automated erythrocyte distribution width ratio 15.7 % 10.0-14.5 Automated blood platelet count (count/volume) 267 10*3/uL 130-400 Automated blood platelet mean volume measurement 9.9 [foz_us] 7.4-10.4 Blood type T Indirect antibody screen panel - 09/03/16 09:20 ABO+Rh group OP NRG Transfusion band number [id number] [facility] Blood group antibody screen NEGATIVE NR Complete blood count (CBC) with automated white blood cell (WBC) differential - 09/04/16 06:03 Blood leukocytes automated count (number/volume) 9.6 10*3/uL 4.3-11.0 Blood erythrocytes automated count (number/volume) 3.82 10*6/uL 4.35-5.85 Venous blood hemoglobin measurement (mass/volume) 9.6 g/dL 11.5-16.0 Blood hematocrit (volume fraction) 29 % 35-52 Automated erythrocyte mean corpuscular volume 76 [foz_us] 80-99 Automated erythrocyte mean corpuscular hemoglobin (mass per erythrocyte) 25 pg 25-34 Automated erythrocyte mean corpuscular hemoglobin concentration measurement ( mass/volume) 33 g/dL 32-36 Automated erythrocyte distribution width ratio 15.9 % 10.0-14.5 Automated blood platelet count (count/volume) 264 10*3/uL 130-400 Automated blood platelet mean volume measurement 10.0 [foz_us] 7.4-10.4 Automated blood neutrophils/100 leukocytes 80 % 42-75 Automated blood lymphocytes/100 leukocytes 12 % 12-44 Blood monocytes/100 leukocytes 8 % 0-12 Automated blood eosinophils/100 leukocytes 1 % 0-10 Automated blood basophils/100 leukocytes 0 % 0-10 Blood neutrophils automated count (number/volume) 7.7 10*3 1.8-7.8 Blood lymphocytes automated count (number/volume) 1.1 10*3 1.0-4.0 Blood monocytes automated count (number/volume) 0.7 10*3 0.0-1.0 Automated eosinophil count 0.1 10*3/uL 0.0-0.3 Automated blood basophil count (count/volume) 0.0 10*3/uL 0.0-0.1 Influenza virus A and B antigen detection - 09/04/16 10:00 FLU RESULT NEGATIVE FOR INFLUENZA A AND B ANTIGENS BY IA [facility] Complete blood count (CBC) with automated white blood cell (WBC) differential - 04/11/18 13:20 Blood leukocytes automated count (number/volume) 13.8 10*3/uL 4.3-11.0 Blood erythrocytes automated count (number/volume) 5.03 10*6/uL 4.35-5.85 Venous blood hemoglobin measurement (mass/volume) 13.0 g/dL 11.5-16.0 Blood hematocrit (volume fraction) 39 % 35-52 Automated erythrocyte mean corpuscular volume 78 [foz_us] 80-99 Automated erythrocyte mean corpuscular hemoglobin (mass per erythrocyte) 26 pg 25-34 Automated erythrocyte mean corpuscular hemoglobin concentration measurement ( mass/volume) 33 g/dL 32-36 Automated erythrocyte distribution width ratio 15.8 % 10.0-14.5 Automated blood platelet count (count/volume) 353 10*3/uL 130-400 Automated blood platelet mean volume measurement 9.9 [foz_us] 7.4-10.4 Automated blood neutrophils/100 leukocytes 75 % 42-75 Automated blood lymphocytes/100 leukocytes 12 % 12-44 Blood monocytes/100 leukocytes 6 % 0-12 Automated blood eosinophils/100 leukocytes 7 % 0-10 Automated blood basophils/100 leukocytes 0 % 0-10 Blood neutrophils automated count (number/volume) 10.3 10*3 1.8-7.8 Blood lymphocytes automated count (number/volume) 1.7 10*3 1.0-4.0 Blood monocytes automated count (number/volume) 0.9 10*3 0.0-1.0 Automated eosinophil count 0.9 10*3/uL 0.0-0.3 Automated blood basophil count (count/volume) 0.1 10*3/uL 0.0-0.1 Encounters ACCT No. Visit Date/Time Discharge Status Pt. Type Provider Facility Loc./Unit Complaint [id number] 09/03/2016 12:15:00 09/05/2016 13:50:00 DIS Inpatient FENANDREIA RUSH DO [facility] LDRP DECREASED BABY MOVEMENT 38 WKS PREG;LABOR [id number] 07/22/2016 12:42:00 07/22/2016 14:45:00 DIS Outpatient EDGAR DO ANDREIA Mcdaniel [facility] WSo LEAKING,DECREASED MOVEMENT [id number] 03/16/2016 11:56:00 03/16/2016 15:11:00 DIS Emergency MAUREEN BABCOCKYANG [facility] ER 13 WKS PREG/VAG BLEEDING [id number] 11/26/2015 13:08:00 11/26/2015 23:59:59 CLS Outpatient JANETTE PEREZ MD [facility] RAD ABNORMAL VAGINAL BLEEDING ,PELVIC PAIN [id number] 04/26/2014 19:16:00 04/28/2014 15:55:00 DIS Inpatient JANETTE PEREZ MD [facility] WS INDUCTION [id number] 04/24/2014 19:30:00 04/24/2014 22:10:00 DIS Outpatient JANETTE PEREZ MD [facility] WSo FALL [id number] 04/20/2014 14:14:00 04/20/2014 23:59:59 CLS Outpatient JANETTE PEREZ MD [facility] RAD POSITION [id number] 04/20/2014 11:00:00 04/20/2014 11:43:00 DIS Outpatient JANETTE PEREZ MD [facility] WSo NON STRESS TEST, CONTRACTION [id number] 01/18/2014 11:38:00 01/18/2014 12:50:00 DIS Outpatient [facility] [id number] 12/13/2013 10:37:00 12/13/2013 23:59:59 CLS Outpatient JANETTE PEREZ MD [facility] RAD SURVEY [id number] 09/18/2013 11:13:00 09/18/2013 12:49:00 DIS Emergency SYD HORTON SKIN CARE SPECIALIST [facility] ER PREG 6 WEEKS BLOODY DISCHARGE [id number] 08/17/2013 09:49:00 08/17/2013 23:59:59 CLS Outpatient JANETTE PEREZ MD [facility] RAD LLQ PAIN,RLQ PAIN [id number] 08/05/2013 13:34:00 08/05/2013 23:59:59 CLS Outpatient JANETTE PEREZ MD [facility] CARD CP,HAIR FALLING OUT, SIDE PAIN,PELVIC AREA PAIN [id number] 04/11/2018 13:17:00 ACT Emergency SYD HORTON APRN [facility] ER COUGH/R SIDE PAIN [id number] 09/19/2014 11:06:00 Document Registration [id number] 06/23/2011 13:13:00 Document Registration [id number] 06/19/2011 12:58:00 Document Registration
[2018-04-11] MEDS ORDERED: NS 250 ML (IVPB) BAG IV ONE (15:30)
[2018-04-11] MEDS ORDERED: IOHEXOL 350 MG/ML 150 ML (OMNIPAQUE 350) VIAL IV ONE (15:30)
--- NOTE | 2018-04-11 16:04 | Diagnostic Imaging Report ---
PROCEDURE: CT angiography of the chest with contrast. TECHNIQUE: Multiple contiguous axial images were obtained through the chest after uneventful bolus administration of intravenous contrast. 2D reconstructed CTA MIP acquisitions were also performed. INDICATION: Chest pain, coughing and short of breath for one day. The lungs are clear. There is no effusion or pneumothorax. There is no mediastinal mass or hemorrhage. There is no aortic aneurysm or dissection. There is no pulmonary embolus. IMPRESSION: Normal CT angiography of the chest. Dictated by: Dictated on workstation # [id number]
[2018-04-11] MEDS: NS IV 1000 ML 1,000 ML IV SCH ×3 (16:05→19:30)
[2018-04-11 16:08] VITALS: BP 117/74
[2018-04-11] MEDS ORDERED: cefTRIAXone FOR IV USE 2,000 MG in NS (IVPB) 50 ML IV ONE (16:15)
[2018-04-11] MEDS ORDERED: AZITHROMYCIN INJECTION 500 MG in NS (IVPB) 250 ML IV ONE (16:45)
--- OUTSIDE RECORDS SUMMARY | 2018-04-11 17:02 | XMS REPORT | Continuity of Care Document ---
Author Author [facility] Organization [facility] Address Unknown Phone Unavailable Allergies Active Description Code Type Severity Reaction Onset Reported/Identified Relationship to Patient Clinical Status Yes No Known Drug Allergies [id number] Drug Allergy Unknown N/A 09/19/2008 Medications There is no data. 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 HORTON FARM MANAGEMENT PROFESSOR Ot 789.05 ABDOMINAL PAIN, PERIUMBILIC 01/18/2014 JANETTE [...] IN HEART RATE AND RHYTHM COM 09/05/2016 ANDREIA HERNÁNDEZ DO Ot O99.52 DISEASES OF THE [...] Performed By Performed On 73.6 EPISIOTOMY 04/27/2014 [id number] DELIVERY OF PRODUCTS OF CONCEPTION, EXTE 09/03/2016 [id number] INTRODUCE OTH THERAP SUBST IN MOUTH/PHAR 09/03/2016 [...] 12:38 Serum or plasma choriogonadotropin measurement (units/volume) [id number] m[iU]/mL <5 [id number] - 03/16/16 12:38 [id number] SPECIMEN AVAILABLE NRG Bacteria identification in genital specimen by aerobe culture - 03/16/16 14:16 QUANTITY OF GROWTH Isolated NRG Bacteria identification in genital specimen by aerobe culture [id number] NRG Microscopic examination by wet preparation - 03/16/16 14:16 WET PREP RESULTS NO CLUE CELLS OBSERVED NRG Neisseria gonorrhoeae DNA detection by probe and signal amplification method - 03/16/16 14:16 Gonorrhea amp DNA-urine Negative Negative Chlamydia trachomatis DNA detection by probe and signal amplification method - 03/16/16 14:16 Chlamydia trachomatis DNA detection by probe and target amplification method Negative Negative [id number] - 09/03/16 09:20 [id number] SPECIMEN AVAILABLE NRG Automated blood complete blood [...] ABO+Rh group OP NRG Transfusion band number [id number] [facility] Blood group antibody screen NEGATIVE NR [...] INFLUENZA A AND B ANTIGENS BY IA [facility] Complete blood count (CBC) with automated [...] Status Pt. Type Provider Facility Loc./Unit Complaint [id number] 09/03/2016 12:15:00 09/05/2016 13:50:00 DIS Inpatient FENANDREIA RUSH DO [facility] LDRP DECREASED BABY MOVEMENT 38 WKS PREG;LABOR [id number] 07/22/2016 12:42:00 07/22/2016 14:45:00 DIS Outpatient EDGAR DO ANDREIA Mcdaniel [facility] WSo LEAKING,DECREASED MOVEMENT [id number] 03/16/2016 11:56:00 03/16/2016 15:11:00 DIS Emergency MAUREEN BABCOCKYANG [facility] ER 13 WKS PREG/VAG BLEEDING [id number] 11/26/2015 13:08:00 11/26/2015 23:59:59 CLS Outpatient JANETTE PEREZ MD [facility] RAD ABNORMAL VAGINAL BLEEDING ,PELVIC PAIN [id number] 04/26/2014 19:16:00 04/28/2014 15:55:00 DIS Inpatient JANETTE PEREZ MD [facility] WS INDUCTION [id number] 04/24/2014 19:30:00 04/24/2014 22:10:00 DIS Outpatient JANETTE PEREZ MD [facility] WSo FALL [id number] 04/20/2014 14:14:00 04/20/2014 23:59:59 CLS Outpatient JANETTE PEREZ MD [facility] RAD POSITION [id number] 04/20/2014 11:00:00 04/20/2014 11:43:00 DIS Outpatient JANETTE PEREZ MD [facility] WSo NON STRESS TEST, CONTRACTION [id number] 01/18/2014 11:38:00 01/18/2014 12:50:00 DIS Outpatient JANETTE PEREZ MD [facility] NST [id number] 12/13/2013 10:37:00 12/13/2013 23:59:59 CLS Outpatient JANETTE PEREZ MD [facility] RAD SURVEY [id number] 09/18/2013 11:13:00 09/18/2013 12:49:00 DIS Emergency SYD HORTON FARM MANAGEMENT PROFESSOR [facility] ER PREG 6 WEEKS BLOODY DISCHARGE [id number] 08/17/2013 09:49:00 08/17/2013 23:59:59 CLS Outpatient JANETTE PEREZ MD [facility] RAD LLQ PAIN,RLQ PAIN [id number] 08/05/2013 13:34:00 08/05/2013 23:59:59 CLS Outpatient JANETTE PEREZ MD [facility] CARD CP,HAIR FALLING OUT, SIDE PAIN,PELVIC AREA PAIN [id number] 04/11/2018 13:17:00 ACT Emergency SYD HORTON APRN [facility] ER COUGH/R SIDE PAIN [id number] 09/19/2014 11:06:00 Document Registration [id number] 06/23/2011 13:13:00 Document Registration [id number] 06/19/2011 12:58:00 Document Registration
[2018-04-11] MEDS ORDERED: AZITHROMYCIN 500 MG (ZITHROMAX) VIAL ONE (17:33)
[2018-04-11] MEDS ORDERED: NS (IVPB) 250 ML ONE (17:33)
[2018-04-11 17:45] VITALS: BP 115/67
[2018-04-11] MEDS ORDERED: ONDANSETRON 4 MG/2 ML (SDV) Z0FRAN IVP PRN ×2 (18:15→19:00)
[2018-04-11] MEDS ORDERED: ACETAMINOPHEN 500 MG TAB (TYLENOL) PO PRN (18:15)
[2018-04-11] MEDS ORDERED: morphine INJ 4 MG/ML 1 ML (VIAL/SYRINGE) IVP PRN (18:15)
[2018-04-11 19:19] VITALS: BP 118/59
[2018-04-11] MEDS ORDERED: RT-ALBUTEROL SULF 2.5 MG/3 ML PRE-MIX VIAL ONE (22:54)
[2018-04-11] MEDS ORDERED: RT-ALBUTEROL SULF 2.5 MG/3 ML PRE-MIX VIAL INH PRN (23:30)
[2018-04-12 00:08] VITALS: BP 119/62
[2018-04-12 04:02] VITALS: BP 123/61
[2018-04-12] MEDS: NS IV 1000 ML 1,000 ML IV SCH (04:32)
[2018-04-12 06:42] LABS: BASOPHILS % (AUTO) 0 % (0-10); EOSINOPHILS % (AUTO) 12 % (0-10); HEMATOCRIT 36 % (35-52); HEMOGLOBIN 11.9 G/DL (11.5-16.0); LYMPHOCYTES # (AUTO) 1.6 X 10^3 (1.0-4.0); LYMPHOCYTES % (AUTO) 18 % (12-44); MEAN CORPUSCULAR HEMOGLOBIN 26 PG (25-34); MEAN CORPUSCULAR HGB CONC 33 G/DL (32-36); MEAN CORPUSCULAR VOLUME 80 FL (80-99); MEAN PLATELET VOLUME 9.9 FL (7.4-10.4); MONOCYTES # (AUTO) 0.7 X 10^3 (0.0-1.0); MONOCYTES % (AUTO) 8 % (0-12); NEUTROPHILS # (AUTO) 5.6 X 10^3 (1.8-7.8); NEUTROPHILS % (AUTO) 62 % (42-75); PLATELET COUNT 298 10^3/uL (130-400); RED CELL DISTRIBUTION WIDTH 15.8 % (10.0-14.5)
[2018-04-12 06:56] LABS: ALANINE AMINOTRANSFERASE 16 U/L (0-55); ALBUMIN 3.8 GM/DL (3.2-4.5); ALKALINE PHOSPHATASE 106 U/L (40-136); BILIRUBIN,TOTAL 1.1 MG/DL (0.1-1.0); BUN/CREATININE RATIO 8; CALCIUM 8.6 MG/DL (8.5-10.1); CARBON DIOXIDE 22 MMOL/L (21-32); CHLORIDE 110 MMOL/L (98-107); GFR ESTIMATED > 60; GLUCOSE 109 MG/DL (70-105); POTASSIUM 3.6 MMOL/L (3.6-5.0); SODIUM 139 MMOL/L (135-145)
--- NOTE | 2018-04-12 07:19 | Diagnostic Imaging Report ---
EXAM: CHEST 1 VIEW, AP/PA ONLY INDICATION: Pneumonia. COMPARISON: CTA chest 04/11/2018. FINDINGS: Normal heart size and pulmonary vascularity. No focal pulmonary opacity, pleural effusion or pneumothorax. No acute osseous findings. IMPRESSION: Negative chest. Dictated by: Dictated on workstation # [id number]
[2018-04-12 08:00] VITALS: BP 113/59
[2018-04-12] MEDS ORDERED: AZITHROMYCIN INJECTION 500 MG in NS (IVPB) 250 ML IV SCH (09:00)
[2018-04-12] MEDS ORDERED: FLU QUADRIvalent (5+ YOA) 2018-2019 (AFLURIA) 0.5 ML IM ONE (11:00)
--- NOTE | 2018-04-12 11:09 | History & Physical-Hospitalist ---
History of Present Illness HPI/Chief Complaint The patient is a 28-year-old female. She presented to the emergency room yesterday afternoon with complaints of coughing. Workup showed a white count of 13,800 a temperature maximum of 100.7. Hemoglobin at that time was 13. D-dimer was marginally elevated. CT pulmonary angiogram was negative. She was given a liter of fluids as she was thought to be a bit dry. She was ultimately admitted because her heart rate was running in the 120 range. The MAXIMUM TEMPERATURE at this time is 100.7. The white count has fallen from 13, 800-9000. The pulse rate is 97. She will therefore be dismissed. Date Seen 04/12/18 Time Seen by a Provider: 11:06 Attending Physician Marta Lora MD PCP No,Local Physician Referring Physician Date of Admission Apr 11, 2018 at 16:48 Home Medications & Allergies Home Medications Reviewed patient Home Medication Reconciliation performed by pharmacy medication reconciliations mechanical service technician and/or nursing. Patients Allergies have been reviewed. Allergies Allergies Coded Allergies No Known Drug Allergies (Verified09/19/08) Past Sggimpm-Eeiihx-Rowqfi Hx Past Med/Social Hx: Reviewed Nursing Past Med/Soc Hx Patient Social History Alcohol Use: Denies Use Recreational Drug Use: No Smoking Status: Never a Smoker Physical Abuse Screen: No Sexual Abuse: No Recent Foreign Travel: No Contact w/other who traveled: No Recent Hopitalizations: No Recent Infectious Disease Expo: No Immunizations Up To Date Tetanus Booster (TDap): More than 5yrs Pediatric: Yes Seasonal Allergies Seasonal Allergies: No Past Medical History Reproductive: No Female Reproductive Disorders: Denies Genitourinary: UTI-Chronic History of Blood Disorders: No Adverse Reaction to Blood Rodríguez: No Family History Cardiovascular disease 19 MOTHER Diabetes mellitus 19 FATHER FH: cancer (GRANDFATHER) FH: hyperlipidemia (MOTHER) Hypertension 19 FATHER Thyroid disease 19 MOTHER No Family History of: AIDS Abdominal aortic aneurysm Sunil's disease Alcoholism Alzheimer's disease Aphasia Arthritis Asthma Cancer of mouth Cataracts Colon cancer Completed stroke Congenital disease Congenital heart disease Coronary thrombosis Cystic fibrosis Deafness or hearing loss Dementia Drug abuse Dysphasia Fibrocystic disease of breast Gastroenteritis Glaucoma Headache disorder Hypercholesterolemia Infertility Kidney disease Myocardial infarction Neoplasm Not obtainable due to adoption Osteoporosis Parkinson's disease Prostate cancer Psychosocial problem Respiratory disorder Seizure disorder Severe allergy Tuberculosis Visual disorder No Pertinent Family Hx Review of Systems Constitutional: see HPI EENTM: no symptoms reported Respiratory: cough, short of breath Cardiovascular: no symptoms reported Gastrointestinal: no symptoms reported Genitourinary: no symptoms reported Musculoskeletal: no symptoms reported Skin: no symptoms reported Psychiatric/Neurological: No Symptoms Reported Physical Exam Physical Exam Vital Signs Vital Signs - First Documented 04/11/18 04/11/18 04/11/18 13:22 13:50 23:00 Temp 98.7 Pulse 132 Resp 18 B/P (MAP) 119/78 (92) Pulse Ox 95 O2 Delivery Room Air O2 Flow Rate 2.00 FiO2 28 Capillary Refill : Less Than 3 Seconds Height, Weight, BMI Height: 5'0.00" Weight: 170lbs. 0.0oz. 77.337114yl; 33.2 BMI Method:Stated General Appearance: No Apparent Distress Eyes: Bilateral Eye Normal Inspection HEENT: Normal ENT Inspection Neck: Normal Inspection Respiratory: Chest Non Tender, Lungs Clear, Normal Breath Sounds, No Accessory Muscle Use, No Respiratory Distress Cardiovascular: Regular Rate, Rhythm, No Edema, No Gallop, No JVD, No Murmur, Normal Peripheral Pulses, Tachycardia (pulse equals 90s) Gastrointestinal: Normal Bowel Sounds, No Organomegaly Back: Normal Inspection Extremity: Normal Capillary Refill, Normal Inspection, Normal Range of Motion, Non Tender, No Calf Tenderness, No Pedal Edema Neurologic/Psychiatric: Alert, Oriented x3, No Motor/Sensory Deficits, Normal Mood/Affect Skin: Normal Color, Warm/Dry Lymphatic: No Adenopathy Results Results/Procedures Labs Laboratory Tests 04/11/18 13:20 04/12/18 05:39 Patient resulted labs reviewed. Assessment/Plan Admission Diagnosis 1.fever. 2.tachycardia. 3.upper respiratory infection. Admission Status: Observation Assessment and Plan Dismiss on Omnicef and Zithromax Clinical Quality Measures DVT/VTE Risk/Contraindication: Risk Factor Score Per Nursin RFS Level Per Nursing on Admit: 2=Moderate CRISTOFER PARKER MD Apr 12, 2018 11:09
--- NOTE | 2018-04-12 11:22 | Short Stay Summary-Hospitalist ---
Short Stay Diagnosis D/C Date Dyspnea. 2.fever. 3.upper respiratory infection. Clinical Quality Measures DVT/VTE Risk/Contraindication: Risk Factor Score Per Nursin RFS Level Per Nursing on Admit: 2=Moderate CRISTOFER PARKER MD Apr 12, 2018 11:22
[2018-04-12] MEDS ORDERED: AZIT500T PO (11:23)
[2018-04-12] MEDS ORDERED: CEFD300C3 PO (11:24)
--- NOTE | 2018-04-12 11:36 | Discharge Instructions ---
Discharge Instructions Discharge Medications New, Converted or Re-Newed RX: Transmitted to Pharmacy Patient Instructions Patient Instructions: Take medications as prescribed. You may use Tylenol 650 mg or ibuprofen 600 mg every 6 hours for fever and aches and pains. See your provider in approximately 1 week in follow-up. Activity & Diet Discharge Diet: No Restrictions Activity as Tolerated: Yes CRISTOFER PARKER MD Apr 12, 2018 11:36
[2018-04-12 12:20] VITALS: BP 113/59
[2018-04-12] MEDS ORDERED: cefTRIAXone FOR IV USE 1,000 MG in NS (IVPB) 50 ML IV SCH (16:30)
== END 2018-04-12 11:24 | disposition home or self-care (01) ==
LOC: EDUNIT# 13:16 → ER 13:17 → UNDOADMOB 16:48 → 4TH 16:48 → UNDODISOB 04-12 12:00
PROVIDERS: ADMIT Family Medicine; ATTEND Family Medicine
DX: J06.9 Acute upper respiratory infection, unspecified (principal); R00.0 Tachycardia, unspecified; R06.00 Dyspnea, unspecified; R79.1 Abnormal coagulation profile
CPT/HCPCS: 36415; 36600; 71045; 71046; 71275; 80053; 81000; 82805; 83605; 84145; 84484; 85025; 85379; 87040; 93005; 94640; 94760; 96361; 96365; G0378

== ENCOUNTER 2023-02-15 13:39 | Emergency (ER) | payer SELFPAY ==
[~2023-02-15] VITALS: Ht 162.6 cm; Wt 86.6 kg
[~2023-02-15 13:39] MED LIST changes: +ACET-11 PO; -ACET1TAB43 PO; +ACYC-108 PO; -ACYC200C PO; +AZIT500T PO; +CEFD300C3 PO; -CLIN150C17 PO; +CLIN150C20 PO
--- NOTE | 2023-02-15 14:10 | ED GU-Female ---
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 PT REPORTS SHE WENT TO [facility] AND WAS TOLD THAT SHE IS 3-4 WEEKS . Source: patient, family Exam Limitations: language barrier (ALYSSA RAMOS APRN) History of Present Illness Date Seen by Provider: Feb 15, 2023 Time Seen by Provider: 13:58 Initial Comments 32-year-old female presents to the ER with reports of vaginal bleeding for the last hour. She reports that she soaked a heavy pad and was passing blood clots in the shower. He is complaining of mid lower abdominal pain. Also reports nausea, no vomiting. Denies vaginal discharge. Denies dysuria. Last menstrual cycle was December 29, 2022. She is scheduled to see Dr. Pierce on February 24. She has not had an ultrasound this . (ALYSSA RAMOS APRN) Allergies and Home Medications Allergies Coded Allergies: No Known Drug Allergies (Verified , 09/19/08) Patient Home Medication List Home Medication List Reviewed: Yes (ALYSSA RAMOS APRN) Azithromycin (Zithromax) 500 Mg Tablet, 500 MG PO DAILY Prescribed by: CRISTOFER PARKER on 04/12/18 1123 Cefdinir (Cefdinir) 300 Mg Capsule, 300 MG PO twice a day Prescribed by: CRISTOFER PARKER on 04/12/18 1124 Cephalexin (Cephalexin) 500 Mg Tablet, 500 MG PO TID Prescribed by: Alyssa Choi on 02/15/23 184 Clindamycin Phosphate (Clindamycin Phosphate) 2 % Cream.appl, 40 GM VG HS Prescribed by: Alyssa Choi on 02/15/23 1846 Review of Systems Review of Systems Constitutional: see HPI (ALYSSA RAMOS APRN) Past Zmtufbr-Zutwck-Oxzleh Hx Patient Social History Tobacco Use?: No Smoking Status: Never a Smoker Smokeless Tobacco Frequency: Never a User Use of E-Cig and/or Vaping dev: No Use of E-Cig and/or Vaping Chalo: Never a User Substance use?: No Alcohol Use?: No Pt feels they are or have been: No (ALYSSA RAMOS APRN) Immunizations Up To Date Tetanus Booster (TDap): More than 5yrs PED Vaccines UTD: Yes (ALYSSA RAMOS APRN) Seasonal Allergies Seasonal Allergies: No (ALYSSA RAMOS APRN) Past Medical History Surgeries: No Respiratory: No Cardiac: No Neurological: No Reproductive Disorders: No Female Reproductive Disorders: Denies Genitourinary: No UTI-Chronic Gastrointestinal: Yes (Gastritis ) Musculoskeletal: No Endocrine: No HEENT: No Cancer: No Psychosocial: No Integumentary: No Blood Disorders: No Adverse Reaction/Blood Tranf: No (ALYSSA RAMOS APRN) Family Medical History Cardiovascular disease 19 MOTHER Diabetes mellitus 19 FATHER FH: cancer (GRANDFATHER) FH: hyperlipidemia (MOTHER) Hypertension 19 FATHER Thyroid disease 19 MOTHER No Family History of: AIDS Abdominal aortic aneurysm Sunil's disease Alcoholism Alzheimer's disease Aphasia Arthritis Asthma Cancer of mouth Cataracts Colon cancer Completed stroke Congenital disease Congenital heart disease Coronary thrombosis Cystic fibrosis Deafness or hearing loss Dementia Drug abuse Dysphasia Fibrocystic disease of breast Gastroenteritis Glaucoma Headache disorder Hypercholesterolemia Infertility Kidney disease Myocardial infarction Neoplasm Not obtainable due to adoption Osteoporosis Parkinson's disease Prostate cancer Psychosocial problem Respiratory disorder Seizure disorder Severe allergy Tuberculosis Visual disorder No Pertinent Family Hx (ALYSSA RAMOS APRN) Physical Exam Vital Signs Vital Signs - First Documented 02/15/23 02/15/23 13:52 19:01 Temp 36.5 Pulse 83 Resp 17 B/P (MAP) 125/67 (86) Pulse Ox 98 O2 Delivery Room Air (MABEL ROUSSEAU MD) Vital Signs Capillary Refill : Less Than 3 Seconds (ALYSSA RAMOS APRN) Height, Weight, BMI Height: 5'0.00" Weight: 170lbs. 0.0oz. 77.798463po; 32.00 BMI Method:Stated General Appearance: WD/WN, no apparent distress Neck: supple, normal inspection Cardiovascular: regular rate, rhythm Respiratory: lungs clear, normal breath sounds, no respiratory distress, no accessory muscle use Pelvic: normal external exam, discharge, vaginal bleeding Extremities: normal range of motion, normal inspection Neurologic/Psychiatric: alert, normal mood/affect Skin: normal color, warm/dry (ALYSSA RAMOS APRN) Progress/Results/Core Measures Suspected Sepsis SIRS Temperature: Pulse: 83 Respiratory Rate: 17 Laboratory Tests 02/15/23 14:23: White Blood Count 12.0H Blood Pressure 125 /67 Mean: 86 Laboratory Tests 02/15/23 14:23: Platelet Count 352 (ALYSSA RAMOS APRN) Results/Orders Lab Results Laboratory Tests Test 02/15/23 14:23 02/15/23 15:37 Range/Units White Blood Count 12.0 H 4.3-11.0 10^3/uL Red Blood Count 4.62 3.80-5.11 10^6/uL Hemoglobin 12.5 11.5-16.0 g/dL Hematocrit 38 35-52 % Mean Corpuscular Volume 83 80-99 fL Mean Corpuscular Hemoglobin 27 25-34 pg Mean Corpuscular Hemoglobin Concent 33 32-36 g/dL Red Cell Distribution Width 13.0 10.0-14.5 % Platelet Count 352 130-400 10^3/uL Mean Platelet Volume 9.5 9.0-12.2 fL Immature Granulocyte % (Auto) 1 % Neutrophils (%) (Auto) 62 42-75 % Lymphocytes (%) (Auto) 26 12-44 % Monocytes (%) (Auto) 7 0-12 % Eosinophils (%) (Auto) 3 0-10 % Basophils (%) (Auto) 1 0-10 % Neutrophils # (Auto) 7.4 1.8-7.8 10^3/uL Lymphocytes # (Auto) 3.1 1.0-4.0 10^3/uL Monocytes # (Auto) 0.9 0.0-1.0 10^3/uL Eosinophils # (Auto) 0.4 H 0.0-0.3 10^3/uL Basophils # (Auto) 0.1 0.0-0.1 10^3/uL Immature Granulocyte # (Auto) 0.1 0.0-0.1 10^3/uL Urine Color YELLOW Urine Clarity CLOUDY Urine pH 6.0 5-9 Urine Specific Equality >=1.030 1.016-1.022 Urine Protein TRACE H NEGATIVE Urine Glucose (UA) NEGATIVE NEGATIVE Urine Ketones NEGATIVE NEGATIVE Urine Nitrite NEGATIVE NEGATIVE Urine Bilirubin NEGATIVE NEGATIVE Urine Urobilinogen 0.2 < = 1.0 MG/DL Urine Leukocyte Esterase 2+ H NEGATIVE Urine RBC (Auto) 3+ H NEGATIVE Urine RBC RARE /HPF Urine WBC 25-50 H /HPF Urine Squamous Epithelial Cells 10-25 H /HPF Urine Crystals NONE /LPF Urine Bacteria MODERATE H /HPF Urine Casts NONE /LPF Urine Mucus NEGATIVE /LPF Urine Culture Indicated YES Human Chorionic Gonadotropin, Quant 56566 H <5 MIU/ML (MABEL ROUSSEAU MD) Micro Results Microbiology 02/15/23 Wet Prep - Final, Complete (MABEL ROUSSEAU MD) Vital Signs/I&O Capillary Refill : Less Than 3 Seconds (ALYSSA RAMOS APRN) Blood Pressure Mean: 86 Progress Note : Progress Note Patient seen and evaluated, resting comfortably in bed, no acute distress. Based on exam and symptoms, differential diagnosis includes miscarriage, threatened miscarriage, pelvic inflammatory disease or other vaginal infection, UTI, ectopic . Work-up initiated including CBC, hCG, ABO Rh type urinalysis, urine . 1612 Labs reviewed. CBC shows slightly elevated WBC 12.0. hCG 22,851. Urinalysis shows trace protein, 2+ leukocytes, 3+ RBCs, 25-50 WBCs, 10-25 squamous epithelial cells, moderate bacteria. Ultrasound ordered to rule out ectopic . Pelvic exam performed, small amount of blood, small amount of discharge noted. Wet prep showed few clue cells, moderate RBCs. Will treat for UTI and bacterial vaginosis. 1841 ultrasound reviewed. Single live intrauterine gestation measuring 6 weeks and 6 days, small subchorionic hemorrhage. Bleeding possibly from subchronic hemorrhage, or caused by the urinary tract infection or bacterial vaginosis. Results discussed with patient. Will discharge with prescription for antibiotic for UTI and vaginal cream for bacterial vaginosis. Patient instructed to call Dr. Pierce's office in the morning to see if they would like to see her earlier. Patient instructed to be on pelvic rest until she sees Dr. Pierce. Discharge instructions and return precautions provided. (ALYSSA RAMOS APRN) Diagnostic Imaging Diagonstic Imaging: Ultrasound Plain Films/CT/US/NM/MRI: pelvis Comments [facility] [place], [place] NAME: TWYLALETICIA GA [facility] REC#: [id number] PT STATUS: REG ER : 1990 PHYSICIAN: ALYSSA RAMOS APRN ADMIT DATE: 02/15/23/ER Draft Date of Exam:02/15/23 US OB<14 WKS SNGLE W/TRANSVAG HISTORY: , vaginal bleeding COMPARISON: None TECHNIQUE: Transabdominal and transvaginal ultrasound of the pelvis and gravid uterus. FINDINGS: There is a single live intrauterine gestation. heart rate measures 138 BPM. The pole is seen and measures 7.9 mm corresponding with 6 weeks and 6 days with an estimated date of delivery of 10/05/2023. There is a small subchorionic hemorrhage involving less than 10% of the gestational sac circumference. The gestational sac has a normal contour and appearance. The yolk sac is seen. Nabothian cysts are noted. The right ovary measures 4.6 x 2.5 x 3.1 cm and the left measures 4.5 x 2.6 x 2.5 cm. There is a dominant right ovarian follicle measuring 1.2 cm. There is normal blood flow to the ovaries. The dominant left ovarian follicle measuring 2.4 cm. No free fluid is seen. IMPRESSION: 1. Single live intrauterine gestation measuring at 6 weeks and 6 days. 2. Small subchorionic hemorrhage. Dictated on workstation # [id number] Dict: 02/15/23 1814 Trans: 02/15/23 1821 [facility] [id number] Interpreted by: TAYLER CAT MD Electronically signed by: (ALYSSA RAMOS APRN) Departure Impression Primary Impression: Threatened miscarriage Additional Impressions: Urinary tract infection Qualified Codes: N30.00 - Acute cystitis without hematuria Bacterial vaginosis Subchorionic hemorrhage in first trimester Vaginal bleeding affecting early Disposition: 01 HOME, SELF-CARE Condition: Stable Departure-Patient Inst. Decision time for Depature: 18:41 (ALYSSA RAMOS APRN) Referrals: ANDREIA PIERCE DO Patient Instructions: Bleeding In Early Add. Discharge Instructions: Complete full course of both antibiotics as prescribed. One antibiotic is a pill, the other is a vaginal cream. Call Dr. Pierce's office tomorrow to see if they can see you sooner. Pelvic rest until you see Dr. Pierce, nothing into the vagina, no intercourse. You may take Tylenol as needed for pain. Return for severe bleeding, severe abdominal pain, or any other new, concerning, or worsening symptoms. All discharge instructions reviewed with patient and/or family. Voiced understanding. Scripts Clindamycin Phosphate (Clindamycin Phosphate) 2 % Cream.appl 40 GM VG HS for 7 Days, #7 APPLIC 0 Refills Prov: ALYSSA RAMOS APRN 02/15/23 Cephalexin (Cephalexin) 500 Mg Tablet 500 MG PO TID for 5 Days, #15 TAB 0 Refills Prov: ALYSSA RAMOS APRN 02/15/23 ATTENDING PHYSICIAN NOTE: I was physically present as attending physician in the emergency department during the care of this patient. I discussed need for ultrasound in this case with Alyssa Ramos, PATTY. I did not personally interview or examine this patient. I was not otherwise directly involved in the decision making or delivery of care for this patient. (MABEL ROUSSEAU MD) ALYSSA RAMOS APRN Feb 15, 2023 14:10 MABEL ROUSSEAU MD Feb 16, 2023 07:12
[2023-02-15 14:35] LABS: BILIRUBIN,URINE NEGATIVE (NEGATIVE); CLARITY,URINE CLOUDY; COLOR,URINE YELLOW; GLUCOSE, URINE (UA) NEGATIVE (NEGATIVE); KETONES,URINE NEGATIVE (NEGATIVE); LEUKOCYTE ESTERASE ,URINE 2+ (NEGATIVE); NITRITE,URINE NEGATIVE (NEGATIVE); PROTEIN,URINE TRACE (NEGATIVE)
[2023-02-15 14:37] LABS: BASOPHILS # (AUTO) 0.1 10^3/uL (0.0-0.1); BASOPHILS % (AUTO) 1 % (0-10); EOSINOPHILS # (AUTO) 0.4 10^3/uL (0.0-0.3); EOSINOPHILS % (AUTO) 3 % (0-10); HEMATOCRIT 38 % (35-52); HEMOGLOBIN 12.5 g/dL (11.5-16.0); LYMPHOCYTES # (AUTO) 3.1 10^3/uL (1.0-4.0); LYMPHOCYTES % (AUTO) 26 % (12-44); MEAN CORPUSCULAR HEMOGLOBIN 27 pg (25-34); MEAN CORPUSCULAR HGB CONC 33 g/dL (32-36); MEAN CORPUSCULAR VOLUME 83 fL (80-99); MEAN PLATELET VOLUME 9.5 fL (9.0-12.2); MONOCYTES # (AUTO) 0.9 10^3/uL (0.0-1.0); MONOCYTES % (AUTO) 7 % (0-12); NEUTROPHILS # (AUTO) 7.4 10^3/uL (1.8-7.8); NEUTROPHILS % (AUTO) 62 % (42-75); PLATELET COUNT 352 10^3/uL (130-400)
[2023-02-15 14:50] LABS: BACTERIA,URINE MODERATE /HPF; RBC,URINE RARE /HPF; WBC,URINE 25-50 /HPF
--- NOTE | 2023-02-15 18:23 | Diagnostic Imaging Report ---
HISTORY: , vaginal bleeding COMPARISON: None TECHNIQUE: Transabdominal and transvaginal ultrasound of the pelvis and gravid uterus. FINDINGS: There is a single live intrauterine gestation. heart rate measures 138 BPM. The pole is seen and measures 7.9 mm corresponding with 6 weeks and 6 days with an estimated date of delivery of 10/05/2023. There is a small subchorionic hemorrhage involving less than 10% of the gestational sac circumference. The gestational sac has a normal contour and appearance. The yolk sac is seen. Nabothian cysts are noted. The right ovary measures 4.6 x 2.5 x 3.1 cm and the left measures 4.5 x 2.6 x 2.5 cm. There is a dominant right ovarian follicle measuring 1.2 cm. There is normal blood flow to the ovaries. The dominant left ovarian follicle measuring 2.4 cm. No free fluid is seen. IMPRESSION: 1. Single live intrauterine gestation measuring at 6 weeks and 6 days. 2. Small subchorionic hemorrhage. Dictated by: Dictated on workstation # [id number]
[2023-02-15] MEDS ORDERED: CEPHALEXIN 250 MG CAPSULE PO ONE (18:45)
[2023-02-15] MEDS ORDERED: CLIN40CR VG (18:46)
[2023-02-15] MEDS ORDERED: CEPH500T PO (18:46)
[2023-02-15 19:01] VITALS: BP 107/64
== END 2023-02-15 19:01 | disposition home or self-care (01) ==
LOC: EDUNIT# 13:39 → ER 13:43
DX: O20.0 Threatened abortion (principal); O23.41 Unspecified infection of urinary tract in pregnancy, first trimester; N39.0 Urinary tract infection, site not specified; O23.591 Infection of other part of genital tract in pregnancy, first trimester; Z3A.01 Less than 8 weeks gestation of pregnancy; Z28.310 Unvaccinated for COVID-19
CPT/HCPCS: 36415; 76801; 76817; 81000; 84702; 84703; 85025; 87077; 87088; 87210; 87491; 87591

== ENCOUNTER → 2023-05-19 | Outpatient (CLI) | payer SELFPAY ==
[~2023-05-19] MED LIST changes: +CEPH500T PO; +CLIN40CR VG
--- NOTE | 2023-05-19 17:31 | Diagnostic Imaging Report ---
INDICATION: patient, survey. TECHNIQUE: Multiple real-time grayscale images were obtained over the gravid uterus. COMPARISON: Comparison made with 02/15/2023. FINDINGS: There is a single live intrauterine fetus measuring 20 weeks 3 days in size with normal interval growth compared to the prior study. The fetus is in variable presentation. Amniotic fluid index is normal at 16.4 cm. Gestational sac had normal-appearing shape. Placenta is posterior with no evidence of previa. heart rate is 142 BPM. Cervical length is 5.1 cm. The distance from the placental tip to the internal os was 5.4 cm. There is no free fluid, maternal adnexa were not well seen. survey showed normal-appearing kidneys and bladder. Normal-appearing stomach was seen. Intracranial ventricles appear normal. Four-chamber heart view appeared normal. Three-vessel cord and cord insertion appear normal. Views of the spine appear normal. Biometrical measurements are as follows: Biparietal 4.85 cm, age 20 weeks 5 days. Head circumference 18.07 cm, age 20 weeks 4 days. Abdominal circumference 14.63 cm, age 20 weeks 0 days. Femur length 3.29 cm, age 20 weeks 2 days. Sonographic estimate age: 20 weeks 3 days. Sonographic estimated date of delivery: 10/03/2023. Estimated Weight: 335 gm (+/- 49 gm). LMP percentile: 46%. heart rate: 142 beats per minute. number: 1 of 1. IMPRESSION: Single live intrauterine fetus measuring 20 weeks 3 days in size by composite measurements. There has been normal interval growth compared to the prior study. There is no detectable abnormality at this time. Dictated by: Dictated on workstation # [id number]
== END ==
LOC: RAD 12:23
PROVIDERS: ATTEND Nurse Practitioner Women's Health
DX: Z36.9 Encounter for antenatal screening, unspecified (principal); Z3A.20 20 weeks gestation of pregnancy
CPT/HCPCS: 76805